=== PATIENT | female | born 1960 | race Caucasian/White ===

== ENCOUNTER → 2016-10-25 | Outpatient (CLI) | payer OTHER ==
--- NOTE | 2016-10-26 13:20 | MM ---
Reason for exam: screening (asymptomatic). Last mammogram was performed 1 year and 11 months ago. History: Patient is postmenopausal and has history of other cancer at age 21. Physical Findings: A clinical breast exam by your physician is recommended on an annual basis and results should be correlated with mammographic findings. MG Screening Mammo w CAD Bilateral CC and MLO view(s) were taken. Prior study comparison: November 19, 2014, bilateral MG screening mammo w CAD. April 08, 2008, bilateral digital screening mammogram. There are scattered fibroglandular densities. No significant changes when compared with prior studies. ASSESSMENT: Benign, BI-RAD 2 RECOMMENDATION: Routine screening mammogram of both breasts in 1 year.
== END | disposition home or self-care (01) ==
LOC: RADMAMWWP 10:09
PROVIDERS: ATTEND Internal Medicine
DX: Z12.31 Encounter for screening mammogram for malignant neoplasm of breast (principal)

== ENCOUNTER → 2018-02-20 | Outpatient (CLI) | payer OTHER ==
[2018-02-20 08:58] LABS: Basophils # (A) 0.1 k/uL (0-0.2); Basophils % (A) 1 %; Eosinophils # (A) 0.7 k/uL (0-0.7); Eosinophils % (A) 11 %; HCT 42.1 % (34.0-46.0); HGB 14.2 gm/dL (11.4-16.0); Lymphocytes # (A) 2.5 k/uL (1.0-4.8); Lymphocytes % (A) 38 %; MCH 28.8 pg (25.0-35.0); MCHC 33.8 g/dL (31.0-37.0); Mean Platelet Volume 6.6; Monocytes # (A) 0.3 k/uL (0-1.0); Monocytes % (A) 5 %; Neutrophils % (A) 44 %; Platelet Count 204 k/uL (150-450); RBC 4.95 m/uL (3.80-5.40); RDW 13.6 % (11.5-15.5); WBC 6.8 k/uL (3.8-10.6)
[2018-02-20 09:06] LABS: ALT 57 U/L (9-52); AST 36 U/L (14-36); Albumin 4.2 g/dL (3.5-5.0); Alkaline Phosphatase 100 U/L (38-126); Anion Gap 9 mmol/L; Blood Urea Nitrogen 19 mg/dL (7-17); Calcium 9.5 mg/dL (8.4-10.2); Carbon Dioxide 25 mmol/L (22-30); Chloride 106 mmol/L (98-107); Cholesterol 166 mg/dL (<200); Glucose 105 mg/dL (74-99); HDL Cholesterol 67 mg/dL (40-60); LDL Cholesterol,Calculated 88 mg/dL (0-99); Potassium 4.3 mmol/L (3.5-5.1); Sodium 140 mmol/L (137-145); Total Bilirubin 1.6 mg/dL (0.2-1.3); Total Protein 6.9 g/dL (6.3-8.2); Triglycerides 56 mg/dL (<150)
== END | disposition home or self-care (01) ==
LOC: LABWHC1 08:13
PROVIDERS: ATTEND Internal Medicine
DX: I10 Essential (primary) hypertension (principal)
CPT/HCPCS: 36415; 80053; 80061; 84443; 85025

== ENCOUNTER → 2018-03-09 | Outpatient (CLI) | payer OTHER ==
--- NOTE | 2018-03-19 11:01 | MM ---
Reason for exam: screening (asymptomatic). Last mammogram was performed 1 year and 4 months ago. History: Patient is postmenopausal and has history of other cancer at age 21. Physical Findings: A clinical breast exam by your physician is recommended on an annual basis and results should be correlated with mammographic findings. MG Screening Mammo w CAD Bilateral CC and MLO view(s) were taken. Prior study comparison: October 25, 2016, bilateral MG screening mammo w CAD. November 19, 2014, bilateral MG screening mammo w CAD. The breast tissue is heterogeneously dense. This may lower the sensitivity of mammography. Benign appearing bilateral calcifications. No suspicious abnormality. No significant changes when compared with prior studies. ASSESSMENT: Benign, BI-RAD 2 RECOMMENDATION: Routine screening mammogram of both breasts in 1 year.
== END | disposition home or self-care (01) ==
LOC: RADMAMWWP 09:46
PROVIDERS: ATTEND Internal Medicine
DX: Z12.31 Encounter for screening mammogram for malignant neoplasm of breast (principal)
CPT/HCPCS: 77067

== ENCOUNTER → 2019-04-24 | Outpatient (CLI) | payer OTHER ==
--- NOTE | 2019-04-24 16:56 | XR ---
EXAMINATION TYPE: XR shoulder complete RT DATE OF EXAM: 04/24/2019 CLINICAL HISTORY: Pain for months. TECHNIQUE: Three views of the right shoulder are obtained. COMPARISON: None. FINDINGS: There is no acute fracture/dislocation evident in the right shoulder. Moderate narrowing a t the acromioclavicular joint. Distal acromion morphology is maintained. Glenohumeral joint is preser suyapa. The visualized ribs are intact and unremarkable. IMPRESSION: As above.
== END | disposition home or self-care (01) ==
LOC: RADXRMAIN 16:34
PROVIDERS: ATTEND Internal Medicine
DX: M25.811 Other specified joint disorders, right shoulder (principal); M25.511 Pain in right shoulder

== ENCOUNTER 2020-04-29 07:47 | Emergency (ER) | payer OTHER ==
[2020-04-29] MEDS ORDERED: MORPHINE SULFATE 4 MG/ML SYRINGE IV STA (08:04)
--- NOTE | 2020-04-29 08:10 | ED ---
General Adult HPI <LancerosettaScooter morris [place] - Last Filed: 04/29/20 10:43> - General Source: patient, RN notes reviewed, old records reviewed Mode of arrival: ambulatory Limitations: no limitations <Ever Kolb - Last Filed: 04/29/20 13:24> - General Chief complaint: Fall Stated complaint: FALL ARM INJURY Time Seen by Provider: 04/29/20 07:52 - History of Present Illness Initial comments: 59-year-old female patient no pertinent past medical history presents to ED for mechanical fall on left elbow. Patient reports that she is leaving to go to work and she was in a [place]leman and she tripped on a piece of wire falling on her left elbow. Denies hitting her head and her neck. Complaining of elbow pain. Denies any blood thinner. Denies any other complaints. Systemic: Pt denies fatigue, fever/chills, rash. Pt denies weakness, night sweats, weight loss. Neuro: Pt denies headache, visual disturbances, syncope or pre-syncope. HEENT: Pt denies ocular discharge or irritation, otalgia, rhinorrhea, pharyngitis or notable lymphadenopathy. Cardiopulmonary: Pt denies chest pain, SOB, heart palpitations, dyspnea on exertion. Abdominal/GI: Pt denies abdominal pain, n/v/d. : Pt denies dysuria, burning w/ urination, frequency/urgency. Denies new onset urinary or bowel incontinence. Neuro: Pt denies new onset weakness, paresthesias. (Ever Kolb) - Related Data Home Medications Medication Instructions Recorded Confirmed Metoprolol Tartrate 25 mg PO DAILY 09/27/15 04/29/20 Ibuprofen [Motrin] 400 mg PO BID 07/04/17 04/29/20 diphenhydrAMINE HCL [Benadryl] 50 mg PO HS PRN 07/04/17 04/29/20 Allergies Allergy/AdvReac Type Severity Reaction Status Date / Time Penicillins AdvReac Rash/Hives Verified 04/29/20 09:06 Review of Systems ROS Other: All systems not noted in ROS Statement are negative. <Scooter Gomez - Last Filed: 04/29/20 10:43> ROS Other: All systems not noted in ROS Statement are negative. <Ever Kolb - Last Filed: 04/29/20 13:24> ROS Statement: Those systems with pertinent positive or pertinent negative responses have been documented in the HPI. Past Medical History Past Medical History: Hypertension History of Any Multi-Drug Resistant Organisms: None Reported Past Surgical History: Cholecystectomy, Hysterectomy Past Psychological History: No Psychological Hx Reported Smoking Status: Former smoker Past Alcohol Use History: None Reported Past Drug Use History: None Reported <Ever Kolb - Last Filed: 04/29/20 13:24> General Exam Limitations: no limitations <Ever Kolb - Last Filed: 04/29/20 13:24> - General Exam Comments Initial Comments: Constitutional: NAD, AOX3, Pt has pleasant affect. HEENT: NC/AT, trachea midline, neck supple, no lymphadenopathy. External ears appear normal, without discharge. Mucous membranes moist. Eyes PERRLA, EOM intact. There is no scleral icterus. No pallor noted. Cardiopulmonary: RRR, no murmurs, rubs or gallops, no JVD noted. Lungs CTAB in anterior and posterior burks. No peripheral edema. Abdominal exam: Abdomen soft and non-distended. Abdomen non-tender to palpation in all 4 quadrants. Bowel sounds active in LLQ. No hepatosplenomegaly. No ecchymosis Neuro: CN II-XII grossly intact. No nuchal rigidity. No raccon eyes, no bobby sign, no hemotympanum. No cervical spinal tenderness. MSK:left elbow is mildly tender to palpation there is some deformity noted. There is no laceration. Radial pulses +2 equal bilaterally. There was some paresthesias and decreased sensation noted to the ulnar aspect of the forearm. Sensation is intact otherwise and range of motion of hand is intact. Posterior tibialis and radial pulse +2 bilaterally. (Ever Kolb) Course Vital Signs 04/29/20 04/29/20 04/29/20 07:55 09:50 09:55 Temperature 97.7 F Pulse Rate 66 81 92 Respiratory 16 18 17 Rate Blood Pressure 147/86 164/92 191/118 O2 Sat by Pulse 99 100 100 Oximetry 04/29/20 04/29/20 04/29/20 10:00 10:15 10:30 Temperature Pulse Rate 108 H 85 69 Respiratory 15 18 17 Rate Blood Pressure 176/98 141/85 134/89 O2 Sat by Pulse 100 99 98 Oximetry 04/29/20 04/29/20 04/29/20 10:45 11:17 11:54 Temperature Pulse Rate 70 71 85 Respiratory 18 18 16 Rate Blood Pressure 131/78 126/83 127/77 O2 Sat by Pulse 98 95 98 Oximetry 04/29/20 12:35 Temperature 98.7 F Pulse Rate 85 Respiratory 18 Rate Blood Pressure 150/90 O2 Sat by Pulse 97 Oximetry Procedures - Procedural Sedation Procedural Sedation Start Time: 09:50 Procedural Sedation Stop Time: 10:30 Indications: fracture/dislocation reduction ASA Class: II Mallampati Airway Score: 2 Preparation: campus monitor applied, pulse oximeter, capnometry used, supplemental O2 applied, suction/airway equipment at bedside Ketamine: IV Ketamine Dose: 74 Complications: none Patient Tolerated Procedure: well <Scooter Gomez - Last Filed: 04/29/20 10:43> - Orthopedic Joint Reduction Joint #1 Consent Obtained: verbal consent Side: left Joint Reduction Location: elbow Shoulder Technique Used (if applicable): traction/counter-traction Post-Reduction Neuro Exam: intact (ulnar decreased sensation noted ) Post-Reduction Vascular Exam: intact Splint Applied: Yes (posterior mold ) Patient Tolerated Procedure: well <Ever Kolb - Last Filed: 04/29/20 13:24> Medical Decision Making <Ever Kolb - Last Filed: 04/29/20 13:24> - Medical Decision Making 59-year-old female patient procedure evaluation of left elbow injury. Patient vital signs are stable, afebrile. Physical exam displayed some tenderness and deformity to the left elbow. Plain film confirmed a elbow dislocation. Patient elbow was reduced under moderate sedation. Initial attempts without moderate sedation was unsuccessful. Patient placed in a posterior mold and a sling will be discharged outpatient orthopedic follow-up and return precautions. patient is alert and oriented upon discharge. Case discussed and procedure completed with Dr. Gomez. (Ever Kolb) Disposition <Scooter Gomez - Last Filed: 04/29/20 10:43> Is patient prescribed a controlled substance at d/c from ED?: No <Ever Kolb - Last Filed: 04/29/20 13:24> Clinical Impression: Elbow dislocation Disposition: HOME SELF-CARE Condition: Stable Instructions (If sedation given, give patient instructions): Elbow Dislocation (ED), Moderate Sedation (ED) Additional Instructions: follow-up with primary care provider and orthopedic consult today. Continue to wear splint and sling. Return to ER if any worsening symptoms. Referrals: Ninoska Crawley MD [Primary Care Provider] - 1-2 days Randall Brush MD [STAFF PHYSICIAN] - 1-2 days
--- NOTE | 2020-04-29 08:39 | XR ---
EXAMINATION TYPE: XR elbow limited LT DATE OF EXAM: 04/29/2020 CLINICAL HISTORY: Fall with pain. TECHNIQUE: 2 views of the left elbow were attempted. COMPARISON: None FINDINGS: There is dislocation as olecranon is displaced radially from the normal position relative to the distal humerus. No linear lucencies to suggest acute fracture clearly seen. Moderate focal sub cutaneous edema proximal forearm ulnar aspect noted. IMPRESSION: As above.
[2020-04-29] MEDS ORDERED: KETOROLAC 15 MG/ML 1 ML VIAL IM STA (08:54)
[2020-04-29] MEDS ORDERED: MORPHINE SULFATE 4 MG/ML SYRINGE IM STA (08:54)
[2020-04-29] MEDS ORDERED: MORPHINE SULFATE 4 MG/ML SYRINGE IVP STA (08:57)
[2020-04-29] MEDS ORDERED: KETOROLAC 15 MG/ML 1 ML VIAL IVP STA (09:06)
[2020-04-29] MEDS ORDERED: KETAMINE 10 MG/ML 20 ML VIAL IV ONE (09:25)
[2020-04-29] MEDS ORDERED: ONDANSETRON 4 MG/2 ML VIAL IVP STA (10:13)
--- NOTE | 2020-04-29 10:17 | XR ---
EXAMINATION TYPE: XR elbow limited LT DATE OF EXAM: 04/29/2020 CLINICAL HISTORY: Elbow dislocation TECHNIQUE: Single lateral image of left elbow is obtained after reduction. COMPARISON: Left elbow x-ray earlier today FINDINGS: There is successful interval reduction with improved articulation of the olecranon with th e distal humerus on the lateral view of prior dislocation. Overlying splint material is present. IMPRESSION: As above.
[2020-04-29] MEDS ORDERED: METOCLOPRAMIDE 5 MG/ML 2 ML VIAL IVP STA (11:54)
[2020-04-29 11:55] VITALS: PULSE 85
[2020-04-29 12:44] VITALS: BP 150/90; RESP 18; TEMP 98.7
== END 2020-04-29 12:44 | disposition home or self-care (01) ==
LOC: EC 07:47
DX: S53.105A Unspecified dislocation of left ulnohumeral joint, initial encounter (principal); I10 Essential (primary) hypertension; Z79.899 Other long term (current) drug therapy; Z88.0 Allergy status to penicillin; Z87.891 Personal history of nicotine dependence; W01.0XXA Fall on same level from slipping, tripping and stumbling without subsequent striking against object, initial encounter
CPT/HCPCS: 99284; 24600; 99152; 99153 ×2; 73070; 96374; 96375 ×3; 96376; J2270; J2765; J2405; J1885

== ENCOUNTER 2020-07-23 18:10 | Emergency (ER) | payer OTHER ==
[2020-07-23 18:17] VITALS: BP 149/94; PULSE 68; RESP 18; TEMP 97.8
--- NOTE | 2020-07-23 18:32 | ED ---
Lower Extremity Injury HPI - General Chief Complaint: Extremity Injury, Lower Stated Complaint: RT knee pain Time Seen by Provider: 07/23/20 18:18 Source: patient Mode of arrival: ambulatory Limitations: no limitations - History of Present Illness Initial Comments: 60-year-old female presenting to the emergency department with a chief complaint of right knee pain. Patient states this occurred about 3 hours prior to arrival. Patient reports she tripped over an object in her house and went directly to the ground with a right knee. Patient reports tenderness directly over the patella and slightly over the infrapatellar region. Patient does report pain with knee flexion past 90. Patient does report taking some ibuprofen for the pain. She reports the pain is exacerbated with flexion and alleviated at rest. Denies any numbness or tingling. - Related Data Home Medications Medication Instructions Recorded Confirmed Metoprolol Tartrate 25 mg PO DAILY 09/27/15 07/23/20 Ibuprofen [Motrin] 600 mg PO HS 07/04/17 07/23/20 diphenhydrAMINE HCL [Benadryl] 50 mg PO HS 07/04/17 07/23/20 Loratadine [Claritin] 20 mg PO DAILY 07/23/20 07/23/20 guaiFENesin [Mucinex] 600 mg PO TID 07/23/20 07/23/20 Allergies Allergy/AdvReac Type Severity Reaction Status Date / Time Penicillins AdvReac Rash/Hives Verified 07/23/20 19:10 Review of Systems ROS Statement: Those systems with pertinent positive or pertinent negative responses have been documented in the HPI. ROS Other: All systems not noted in ROS Statement are negative. Past Medical History Past Medical History: Hypertension History of Any Multi-Drug Resistant Organisms: None Reported Past Surgical History: Cholecystectomy, Hysterectomy Past Psychological History: No Psychological Hx Reported Smoking Status: Former smoker Past Alcohol Use History: None Reported Past Drug Use History: None Reported General Exam Limitations: no limitations General appearance: alert, in no apparent distress Head exam: Present: atraumatic, normocephalic, normal inspection Eye exam: Present: normal appearance, PERRL, EOMI Pupils: Present: normal accommodation ENT exam: Present: normal exam, normal oropharynx, mucous membranes moist, TM's normal bilaterally, normal external ear exam Neck exam: Present: normal inspection, full ROM. Absent: tenderness Respiratory exam: Present: normal lung sounds bilaterally. Absent: respiratory distress, wheezes, rales, rhonchi, stridor Cardiovascular Exam: Present: regular rate, normal rhythm, normal heart sounds. Absent: systolic murmur, diastolic murmur Extremities exam: Present: normal inspection, tenderness (Tenderness directly over the right patellar and infrapatellar region.), normal capillary refill, other (+2 dorsalis pedis and posterior tibials bilaterally.). Absent: full ROM (Limited range of motion with knee flexion past 90.), pedal edema, joint swelling, calf tenderness Back exam: Present: normal inspection, full ROM. Absent: tenderness, CVA tenderness (R), CVA tenderness (L), muscle spasm Neurological exam: Present: alert, oriented X3 Psychiatric exam: Present: normal affect, normal mood Skin exam: Present: warm, dry, intact, normal color Course Vital Signs 07/23/20 18:14 Temperature 97.8 F Pulse Rate 68 Respiratory 18 Rate Blood Pressure 149/94 O2 Sat by Pulse 100 Oximetry Medical Decision Making - Medical Decision Making 60-year-old female presenting to emergency Department with a chief complaint of right knee pain. On physical examination, patient is neurovascularly intact in the right lower stomach. Some localized tenderness to deep patellar patellar region of the right knee. X-ray is unremarkable. Perry wrap was applied. Patient was advised to follow-up with his primary care physician and orthope dics. advised to RICE. Strict return parameters were thoroughly discussed the patient is an attending agreeable. Case discussed with physician. Disposition Clinical Impression: Right knee injury, Right knee pain Disposition: HOME SELF-CARE Condition: Stable Instructions (If sedation given, give patient instructions): Knee Pain (ED) Additional Instructions: Rest, ice, wear compression, elevate. Alternate between Tylenol and Motrin for pain control. return to emergency department if symptoms worsen. Is patient prescribed a controlled substance at d/c from ED?: No Referrals: Ninoska Crawley MD [Primary Care Provider] - 1-2 days Time of Disposition: 19:21
--- NOTE | 2020-07-23 19:11 | XR ---
History: ITS.REASON XR Reason: fall Exam: XR RIGHT KNEE 3 views Comparison: None available FINDINGS: No fracture or dislocation identified. Portions of the suprapatellar soft tissues are excluded from imaging on the lateral view. Possible small joint effusion suggested. The joint spaces appear within limits. IMPRESSION: No fracture or dislocation identified. Portions of the suprapatellar soft tissues are excluded from imaging on the lateral view. Possible small joint effusion suggested.
== END 2020-07-23 19:32 | disposition home or self-care (01) ==
LOC: EC 18:10
DX: S89.91XA Unspecified injury of right lower leg, initial encounter (principal); I10 Essential (primary) hypertension; Z79.1 Long term (current) use of non-steroidal anti-inflammatories (NSAID); Z79.899 Other long term (current) drug therapy; Z88.0 Allergy status to penicillin; Z87.891 Personal history of nicotine dependence; W18.09XA Striking against other object with subsequent fall, initial encounter; Y92.009 Unspecified place in unspecified non-institutional (private) residence as the place of occurrence of the external cause
CPT/HCPCS: 99283

== ENCOUNTER 2020-10-18 08:52 | Inpatient (IN) | payer OTHER ==
[2020-10-18] MEDS ORDERED: SODIUM CHLORIDE 0.9% 500 ML 500 ML IV ONE (09:15)
[2020-10-18] MEDS ORDERED: SODIUM CHLORIDE 0.9% 1,000 ML IV ONE (09:15)
[2020-10-18] MEDS ORDERED: ONDANSETRON 4 MG/2 ML VIAL IVP STA (09:20)
[2020-10-18] MEDS ORDERED: KETOROLAC 15 MG/ML 1 ML VIAL IVP STA (09:20)
--- NOTE | 2020-10-18 09:23 | ED ---
Female Urogenital HPI - General Chief complaint: Urogenital Stated complaint: L side pain Time Seen by Provider: 10/18/20 09:10 Source: patient, RN notes reviewed Mode of arrival: ambulatory Limitations: no limitations - History of Present Illness Initial comments: This is a 60-year-old female with a history of frequent UTIs who states she had the onset yesterday of severe stabbing left-sided flank pain. She states she has dark-colored urine she denies any fevers chills or sweats she states the pain is severe is 20/10 in severity. She has dry heaves with it no blood in urine no other complaints of any other abnormalities at this time. She states she was thought to have a kidney stone one time but was never found by urology. MD Complaint: other - Related Data Home Medications Medication Instructions Recorded Confirmed Metoprolol Tartrate 25 mg PO DAILY 09/27/10/18/20 Ibuprofen [Motrin] 600 mg PO HS 07/04/17 10/18/20 diphenhydrAMINE HCL [Benadryl] 50 mg PO HS 07/04/17 10/18/20 Allergies Allergy/AdvReac Type Severity Reaction Status Date / Time Penicillins AdvReac Rash/Hives Verified 10/18/20 09:28 Review of Systems ROS Statement: Those systems with pertinent positive or pertinent negative responses have been documented in the HPI. ROS Other: All systems not noted in ROS Statement are negative. Past Medical History Past Medical History: Hypertension History of Any Multi-Drug Resistant Organisms: None Reported Past Surgical History: Cholecystectomy, Hysterectomy Past Psychological History: No Psychological Hx Reported Smoking Status: Never smoker Past Alcohol Use History: None Reported Past Drug Use History: None Reported General Exam - General Exam Comments Initial Comments: This is a well-developed well-nourished awake alert oriented 3 female Limitations: no limitations General appearance: alert, anxious, in distress Head exam: Present: atraumatic, normocephalic, normal inspection Eye exam: Present: normal appearance, PERRL, EOMI. Absent: scleral icterus, conjunctival injection, periorbital swelling ENT exam: Present: normal exam, mucous membranes moist Neck exam: Present: normal inspection. Absent: tenderness, meningismus, lymphadenopathy Respiratory exam: Present: normal lung sounds bilaterally. Absent: respiratory distress, wheezes, rales, rhonchi, stridor Cardiovascular Exam: Present: regular rate, normal rhythm, normal heart sounds. Absent: systolic murmur, diastolic murmur, rubs, gallop, clicks GI/Abdominal exam: Present: soft, tenderness (Some tenderness and left flank), normal bowel sounds. Absent: distended, guarding, rebound, rigid Rectal exam: Present: deferred Extremities exam: Present: normal inspection, full ROM, normal capillary refill. Absent: tenderness, pedal edema, joint swelling, calf tenderness Back exam: Present: normal inspection, CVA tenderness (L) Neurological exam: Present: alert, oriented X3, CN II-XII intact Psychiatric exam: Present: normal affect, normal mood Skin exam: Present: warm, dry, intact, normal color. Absent: rash Course Vital Signs 10/18/20 09:00 Temperature 97.6 F Pulse Rate 68 Respiratory 18 Rate Blood Pressure 185/94 O2 Sat by Pulse 99 Oximetry - Reevaluation(s) Reevaluation #1: 10/18/20 10:08 Reevaluation finds patient does states she's feeling improvement in her pain Medical Decision Making - Medical Decision Making Reevaluation patient reveals the pain is beginning to come back she is very uncomfortable nausea has resolved however. I did discuss patient's case with her as well as with Dr. See patient be admitted with GI surgical and consultation. Case is discussed with Dr. Singh - Lab Data Result diagrams: 10/18/20 09:24 10/18/20 09:24 Lab Results 10/18/20 10/18/20 10/18/20 Range/Units 09:24 09:24 09:24 WBC 7.6 (3.8-10.6) k/uL RBC 5.00 (3.80-5.40) m/uL Hgb 14.4 (11.4-16.0) gm/dL Hct 42.5 (34.0-46.0) % MCV 85.0 (80.0-100.0) fL MCH 28.7 (25.0-35.0) pg MCHC 33.8 (31.0-37.0) g/dL RDW 13.7 (11.5-15.5) % Plt Count 217 (150-450) k/uL MPV 6.5 Neutrophils % 60 % Lymphocytes % 28 % Monocytes % 4 % Eosinophils % 6 % Basophils % 1 % Neutrophils # 4.6 (1.3-7.7) k/uL Lymphocytes # 2.2 (1.0-4.8) k/uL Monocytes # 0.3 (0-1.0) k/uL Eosinophils # 0.5 (0-0.7) k/uL Basophils # 0.0 (0-0.2) k/uL Sodium 140 (137-145) mmol/L Potassium 3.9 (3.5-5.1) mmol/L Chloride 106 (98-107) mmol/L Carbon Dioxide 25 (22-30) mmol/L Anion Gap 9 mmol/L BUN 11 (7-17) mg/dL Creatinine 0.69 (0.52-1.04) mg/dL Est GFR (CKD-EPI)AfAm >90 (>60 ml/min/1.73 sqM) Est GFR (CKD-EPI)NonAf >90 (>60 ml/min/1.73 sqM) Glucose 133 H (74-99) mg/dL Calcium 9.7 (8.4-10.2) mg/dL Total Bilirubin 1.6 H (0.2-1.3) mg/dL AST 37 H (14-36) U/L ALT 46 H (4-34) U/L Alkaline Phosphatase 103 (38-126) U/L Total Protein 7.3 (6.3-8.2) g/dL Albumin 4.3 (3.5-5.0) g/dL Urine Color Yellow Urine Appearance Slightly Cloudy H (Clear) Urine pH 5.5 (5.0-8.0) Ur Specific [place] 1.016 (1.001-1.035) Urine Protein Negative (Negative) Urine Glucose (UA) Negative (Negative) Urine Blood Moderate H (Negative) Urine Nitrite Negative (Negative) Urine Bilirubin Negative (Negative) Urine Urobilinogen <2.0 (<2.0) mg/dL Ur Leukocyte Esterase Large (Negative) Urine RBC 54 H (0-5) /hpf Urine WBC 15 H (0-5) /hpf Ur Squamous Epith Cells 6 H (0-4) /hpf Urine Bacteria Rare H (None) /hpf Hyaline Casts 1 (0-2) /lpf Urine Mucus Occasional H (None) /hpf - Radiology Data Radiology results: report reviewed (I did review the imaging and report evidence of colitis as well as a 7 mm obstructing stone left ureter. Please see the complete report), image reviewed Disposition Clinical Impression: Intractable abdominal pain, Kidney stone on left side, Obstructive uropathy, Colitis Disposition: ADMITTED IP TO THIS HOSP Condition: Fair Referrals: Ninoska Crawley MD [Primary Care Provider] - 1-2 days
[2020-10-18 09:43] LABS: Basophils % (A) 1 %; Eosinophils # (A) 0.5 k/uL (0-0.7); Eosinophils % (A) 6 %; HCT 42.5 % (34.0-46.0); HGB 14.4 gm/dL (11.4-16.0); Lymphocytes # (A) 2.2 k/uL (1.0-4.8); Lymphocytes % (A) 28 %; MCH 28.7 pg (25.0-35.0); MCHC 33.8 g/dL (31.0-37.0); Mean Platelet Volume 6.5; Monocytes # (A) 0.3 k/uL (0-1.0); Monocytes % (A) 4 %; Neutrophils # (A) 4.6 k/uL (1.3-7.7); Neutrophils % (A) 60 %; Platelet Count 217 k/uL (150-450); RDW 13.7 % (11.5-15.5); WBC 7.6 k/uL (3.8-10.6)
[2020-10-18 09:46] LABS: ALT 46 U/L (4-34); AST 37 U/L (14-36); African American GFR (CKD) >90 (>60 ml/min/1.73 sqM); Albumin 4.3 g/dL (3.5-5.0); Alkaline Phosphatase 103 U/L (38-126); Anion Gap 9 mmol/L; Blood Urea Nitrogen 11 mg/dL (7-17); Calcium 9.7 mg/dL (8.4-10.2); Carbon Dioxide 25 mmol/L (22-30); Chloride 106 mmol/L (98-107); Glucose 133 mg/dL (74-99); Non-African American GFR(CKD) >90 (>60 ml/min/1.73 sqM); Potassium 3.9 mmol/L (3.5-5.1); Sodium 140 mmol/L (137-145); Total Bilirubin 1.6 mg/dL (0.2-1.3); Total Protein 7.3 g/dL (6.3-8.2)
[2020-10-18 09:49] LABS: Color,Urine Yellow
[2020-10-18 09:50] LABS: Appearance,Urine Slightly Cloudy (Clear); Bilirubin,Urine Negative (Negative); Blood,Urine Moderate (Negative); Glucose,Urine (UA) Negative (Negative); Leukocyte Esterase,Urine Large (Negative); Nitrite,Urine Negative (Negative); PH, Urine 5.5 (5.0-8.0); Protein,Urine Negative (Negative); Specific Gravity,Urine 1.016 (1.001-1.035); Urobilinogen,Urine <2.0 mg/dL (<2.0)
--- NOTE | 2020-10-18 09:54 | CT ---
EXAMINATION TYPE: CT abdomen pelvis wo con DATE OF EXAM: 10/18/2020 COMPARISON: None INDICATION: Lt flank pain DLP: 681.5 mGycm, Automated exposure control for dose reduction was used. CONTRAST: 0 mL of Isovue 300. Study performed without Oral Contrast TECHNIQUE: Axial images were obtained from above the diaphragm to the pubic rami in the axial plane a t 5 mm thick sections. Reconstructed images are reviewed on the computer in the coronal plane. FINDINGS: Limited CT sections are obtained the lung bases. The lung bases are clear. CT ABDOMEN: Liver: Moderate fatty infiltrations within the liver. Spleen: Normal Pancreas: Normal Adrenal glands: The adrenal glands are normal. Gallbladder: Surgically absent Kidneys: No masses are evident. There is a moderate left hydronephrosis. Hydroureter is present. This extends to the mid abdomen. There is a 0.7 cm mid ureteral stone present on the left causing obstruc tion. Distal ureter is decompressed. A punctate calcification without obstruction may be present on t he right kidney No cysts are present. Aorta: Vascular calcification is within the aorta. Inferior vena cava: Normal. CT PELVIS: Loops of bowel within the abdomen and pelvis are normal. There are scattered diverticular changes wit hin the sigmoid colon. Mild colon wall thickening from the proximal transverse colon to the sigmoid c olon wall thickening is present. Correlate for colitis. No suspicious adjacent inflammatory changes t o suggest acute diverticulitis is evident. Studies lateral contrast limiting bowel evaluation. Appendix: Normal as visualized. Urinary bladder: Decompressed with limited evaluation. Genitourinary structures: Uterus is absent. Ovaries are not identified. Osseous structures: No suspicious lytic or sclerotic lesions. Degenerative changes of the lumbar spin e IMPRESSIONS: 1. 0.7 cm obstructing mid left ureteral stone with moderate left hydronephrosis and hydroureter. 2. Nonobstructing punctate posterior mid right renal stone. 3. Diffuse wall thickening within the transverse colon and descending colon and sigmoid colon. Correl ate for colitis.
[2020-10-18 09:55] LABS: RBC,Urine 54 /hpf (0-5); Squamous Epithelial Cell,Urine 6 /hpf (0-4); WBC,Urine 15 /hpf (0-5)
[2020-10-18 09:56] LABS: Bacteria,Urine Rare /hpf; Hyaline Casts,Urine 1 /lpf (0-2); Mucus,Urine Occasional /hpf
[2020-10-18] MEDS ORDERED: NALOXONE 0.4 MG/ML 1 ML VIAL IV PRN (11:06)
[2020-10-18] MEDS ORDERED: ONDANSETRON 4 MG/2 ML VIAL IVP PRN (11:06)
[2020-10-18] MEDS: SODIUM CHLORIDE 0.9% 1,000 ML IV SCH ×2 (11:26→16:28)
[2020-10-18] MEDS: LEVOFLOXACIN 250MG-D5W PMX 250 MG in DEXTROSE/WATER 1 50ML.BAG IVPB SCH (13:14)
--- NOTE | 2020-10-18 14:41 | P.GSCN ---
History of Present Illness Consult date: 10/18/20 History of present illness: 60-year-old female presents to the emergency department with complaints of significant abdominal pain. She states that she does have a history of chronic urinary tract infections and is treated as an outpatient for this issue. She states that she has noticed an increase in her infections as of late. She denies any significant changes in bowel function. She denies any blood in her stool. She states she has never had a colonoscopy. CT of the abdomen and pelvis was performed and was concerning for a left sided obstructing kidney stone with hydroureter and hydronephrosis along with inflammatory changes of the colon. She denies any recent fevers, chills, chest pain or shortness of breath. Review of Systems All systems: negative Past Medical History Past Medical History: Hypertension History of Any Multi-Drug Resistant Organisms: None Reported Past Surgical History: Cholecystectomy, Heart Catheterization, Hysterectomy Past Anesthesia/Blood Transfusion Reactions: No Reported Reaction Past Psychological History: No Psychological Hx Reported Smoking Status: Never smoker Past Alcohol Use History: None Reported Past Drug Use History: None Reported - Past Family History Mother Family Medical History: Coronary Artery Disease (CAD) Additional Family Medical History / Comment(s): OPEN HEART SURGERY Father Family Medical History: Cancer Additional Family Medical History / Comment(s): LUNG Medications and Allergies Home Medications Medication Instructions Recorded Confirmed Type Metoprolol Tartrate 25 mg PO DAILY 09/27/15 10/18/20 History Ibuprofen [Motrin] 600 mg PO HS 07/04/17 10/18/20 History diphenhydrAMINE HCL [Benadryl] 50 mg PO HS 07/04/17 10/18/20 History Allergies Allergy/AdvReac Type Severity Reaction Status Date / Time Penicillins AdvReac Rash/Hives Verified 10/18/20 09:28 Surgical - Exam Osteopathic Statement: *. No significant issues noted on an osteopathic st ructural exam other than those noted in the History and Physical/Consult. Vital Signs Temp Pulse Resp BP Pulse Ox 97.6 F 68 18 185/94 99 10/18/20 09:00 10/18/20 09:00 10/18/20 09:00 10/18/20 09:00 10/18/20 09:00 - General well nourished, no distress - Eyes PERRL - Neck trachea midline - Respiratory normal respiratory effort - Abdomen Soft, some tenderness to palpation on the left side of the abdomen, nond istended, no rebound, no guarding Results - Labs 10/18/20 09:24 10/18/20 09:24 Abnormal Lab Results - Last 24 Hours (Table) 10/18/20 10/18/20 Range/Units 09:24 09:24 Glucose 133 H (74-99) mg/dL Total Bilirubin 1.6 H (0.2-1.3) mg/dL AST 37 H (14-36) U/L ALT 46 H (4-34) U/L Urine Appearance Slightly Cloudy H (Clear) Urine Blood Moderate H (Negative) Urine RBC 54 H (0-5) /hpf Urine WBC 15 H (0-5) /hpf Ur Squamous Epith Cells 6 H (0-4) /hpf Urine Bacteria Rare H (None) /hpf Urine Mucus Occasional H (None) /hpf Diabetes panel 10/18/20 Range/Units 09:24 Sodium 140 (137-145) mmol/L Potassium 3.9 (3.5-5.1) mmol/L Chloride 106 (98-107) mmol/L Carbon Dioxide 25 (22-30) mmol/L BUN 11 (7-17) mg/dL Creatinine 0.69 (0.52-1.04) mg/dL Glucose 133 H (74-99) mg/dL Calcium 9.7 (8.4-10.2) mg/dL AST 37 H (14-36) U/L ALT 46 H (4-34) U/L Alkaline Phosphatase 103 (38-126) U/L Total Protein 7.3 (6.3-8.2) g/dL Albumin 4.3 (3.5-5.0) g/dL Calcium panel 10/18/20 Range/Units 09:24 Calcium 9.7 (8.4-10.2) mg/dL Albumin 4.3 (3.5-5.0) g/dL Pituitary panel 10/18/20 Range/Units 09:24 Sodium 140 (137-145) mmol/L Potassium 3.9 (3.5-5.1) mmol/L Chloride 106 (98-107) mmol/L Carbon Dioxide 25 (22-30) mmol/L BUN 11 (7-17) mg/dL Creatinine 0.69 (0.52-1.04) mg/dL Glucose 133 H (74-99) mg/dL Calcium 9.7 (8.4-10.2) mg/dL Adrenal panel 10/18/20 Range/Units 09:24 Sodium 140 (137-145) mmol/L Potassium 3.9 (3.5-5.1) mmol/L Chloride 106 (98-107) mmol/L Carbon Dioxide 25 (22-30) mmol/L BUN 11 (7-17) mg/dL Creatinine 0.69 (0.52-1.04) mg/dL Glucose 133 H (74-99) mg/dL Calcium 9.7 (8.4-10.2) mg/dL Total Bilirubin 1.6 H (0.2-1.3) mg/dL AST 37 H (14-36) U/L ALT 46 H (4-34) U/L Alkaline Phosphatase 103 (38-126) U/L Total Protein 7.3 (6.3-8.2) g/dL Albumin 4.3 (3.5-5.0) g/dL - Imaging CT scan - abdomen: report reviewed, image reviewed CT scan - pelvis: report reviewed, image reviewed Assessment and Plan Plan: 60-year-old female with complaints of abdominal pain and finding of obstructing ureteral stone and concern for colitis with thickening of the colon. At this point, patient is not having any bloody bowel movements or diarrhea. There is no leukocytosis or fever evidence. Based on CT findings, we can continue IV antibiotics. Due to thickening of the colon, I did recommend the patient have a colonoscopy. This would likely be performed as an outpatient. Gastroenterology is consulted and I will defer to them for endoscopy decision making. Currently, there is no plan for acute surgical intervention. Okay to advance diet as tolerated from a surgical standpoint. Awaiting urologic zahra luation and GI evaluation.
[2020-10-18] MEDS: KETOROLAC 15 MG/ML 1 ML VIAL IVP PRN (16:14)
[2020-10-18] MEDS: metroNIDAZOLE-NS PMX 500 MG in SALINE 1 100ML.BAG IVPB SCH ×2 (16:15→22:56)
--- NOTE | 2020-10-18 17:22 | P.HPIM ---
History of Present Illness H&P Date: 10/18/20 Chief Complaint: Left-sided abdominal pain 60-year-old female with a history of frequent UTIs who states she had the onset yesterday of severe stabbing left-sided flank pain. She states she has dark- colored urine she denies any fevers chills or sweats she states the pain is severe is 20/10 in severity. She has dry heaves with it no blood in urine no other complaints of any other abnormalities at this time. She states she was thought to have a kidney stone one time but was never found by urology. Workup in ED including a CT of the abdomen revealed left-sided obstructing kidney stone with hydroureter and hydronephrosis; CT also showed evidence of colitis Patient is admitted to the hospital for further evaluation by urology and surgery Review of Systems REVIEW OF SYSTEMS: CONSTITUTIONAL: No fever, no malaise, no fatigue. HEENT: No recent visual problems or hearing problems. Denied any sore throat. CARDIOVASCULAR: No chest pain, orthopnea, PND, no palpitations, no syncope. PULMONARY: No shortness of breath, no cough, no hemoptysis. GASTROINTESTINAL: abdominal pain. NEUROLOGICAL: No headaches, no weakness, no numbness. HEMATOLOGICAL: Denies any bleeding or petechiae. GENITOURINARY: Denies any burning micturition, frequency, or urgency. MUSCULOSKELETAL/RHEUMATOLOGICAL: Denies any joint pain, swelling, or any muscle pain. ENDOCRINE: Denies any polyuria or polydipsia. The rest of the 14-point review of systems is negative. Past Medical History Past Medical History: Hypertension History of Any Multi-Drug Resistant Organisms: None Reported Past Surgical History: Cholecystectomy, Hysterectomy Past Psychological History: No Psychological Hx Reported Smoking Status: Never smoker Past Alcohol Use History: None Reported Past Drug Use History: None Reported - Past Family History Mother Family Medical History: Coronary Artery Disease (CAD) Additional Family Medical History / Comment(s): OPEN HEART SURGERY Father Family Medical History: Cancer Additional Family Medical History / Comment(s): LUNG Medications and Allergies Home Medications Medication Instructions Recorded Confirmed Type Metoprolol Tartrate 25 mg PO DAILY 09/27/15 10/18/20 History Ibuprofen [Motrin] 600 mg PO HS 07/04/17 10/18/20 History diphenhydrAMINE HCL [Benadryl] 50 mg PO HS 07/04/17 10/18/20 History Allergies Allergy/AdvReac Type Severity Reaction Status Date / Time Penicillins AdvReac Rash/Hives Verified 10/18/20 09:28 Physical Exam Vitals: Vital Signs Temp Pulse Resp BP Pulse Ox 10/18/20 09:00 97.6 F 68 18 185/94 99 Intake and Output 10/17/20 10/18/20 10/18/20 22:59 06:59 14:59 Other: Weight 73.482 kg PHYSICAL EXAMINATION: GENERAL: The patient is alert and oriented x3, not in any acute distress. Well developed, well nourished. HEENT: Pupils are round and equally reacting to light. EOMI. No scleral icterus. No conjunctival pallor. Normocephalic, atraumatic. No pharyngeal erythema. No thyromegaly. CARDIOVASCULAR: S1 and S2 present. No murmurs, rubs, or gallops. PULMONARY: Chest is clear to auscultation, no wheezing or crackles. ABDOMEN: Soft, some tenderness to palpation on the left side of the abdomen, nondistended, no rebound, no guarding. MUSCULOSKELETAL: No joint swelling or deformity. EXTREMITIES: No cyanosis, clubbing, or pedal edema. NEUROLOGICAL: Gross neurological examination did not reveal any focal deficits. SKIN: No rashes. Results CBC & Chem 7: 10/18/20 09:24 10/18/20 09:24 Labs: Abnormal Lab Results - Last 24 Hours (Table) 10/18/20 10/18/20 Range/Units 09:24 09:24 Glucose 133 H (74-99) mg/dL Total Bilirubin 1.6 H (0.2-1.3) mg/dL AST 37 H (14-36) U/L ALT 46 H (4-34) U/L Urine Appearance Slightly Cloudy H (Clear) Urine Blood Moderate H (Negative) Urine RBC 54 H (0-5) /hpf Urine WBC 15 H (0-5) /hpf Ur Squamous Epith Cells 6 H (0-4) /hpf Urine Bacteria Rare H (None) /hpf Urine Mucus Occasional H (None) /hpf Assessment and Plan Assessment: 1. Obstructing ureteral stone with hydronephrosis - Start patient on IV fluid hydration; pain control; consult urology for further evaluation 2. Colitis; patient denies any bloody bowel movements or diarrhea; white blood count remains normal; general surgery and GI is consulted; surgery evaluated patient and recommended to start patient on a diet and advance as tolerated; GI to see patient and make further recommendations for possible colonoscopy 3. UTI; we will start patient on IV Rocephin with further recommendations once urine culture is available 4. Elevated liver enzymes; AST/ALT is elevated at 37/4.6 with mild elevation in total bilirubin at 1.6; we will order hepatic ultrasound and hepatitis profile; GI to see patient and make further recommendations DVT prophylaxis; SCDs CODE STATUS; full code
--- NOTE | 2020-10-18 19:32 | CONS ---
CONSULTATION DATE OF SERVICE: 10/18/2020 REQUESTING PHYSICIAN: Dr. Ninosak Crawley. REASON FOR CONSULTATION: Abnormal CT scan showing thickening of the colon. HISTORY OF PRESENT ILLNESS: The patient is a 60-year-old pleasant white female who came to the emergency room complaining of severe left flank pain that started two days ago. The pain was mostly in the left lower quadrant area associated with some nausea and vomiting. In the emergency room she had a CT of the abdomen and pelvis done that showed a small left ureteral stone measuring 0.7 cm with moderate left hydronephrosis and hydroureter. Neurology has been consulted. The CT scan also showed diffuse wall thickening of the transverse colon and descending colon and, hence, GI has been consulted. The patient, however, denies any change in bowel habits. She was having some constipation for the last two days, but no diarrhea. No rectal bleeding. Never had a colonoscopy in the past. PAST MEDICAL HISTORY: Significant for hypertension, bladder prolapse, recurrent urinary tract infection. MEDICATIONS AT HOME,: Benadryl, metoprolol, Motrin. ALLERGIES: PENICILLIN. SOCIAL HISTORY: No smoking, no alcohol use. FAMILY HISTORY: Unremarkable. REVIEW OF SYSTEMS: CARDIOPULMONARY: No chest pain or shortness of breath. GENITOURINARY: No dysuria or hematuria. MUSCULOSKELETAL: Unremarkable. SKIN: Unremarkable. ENDOCRINE: Unremarkable. PSYCHIATRIC: Unremarkable. NEUROLOGY: Unremarkable. ENT/VISION: Unremarkable. CONSTITUTIONAL: No recent weight loss. No fever, chills, night sweats. GI: As mentioned above. PAST SURGICAL HISTORY: Cholecystectomy and hysterectomy. FAMILY HISTORY: Unremarkable. PHYSICAL EXAMINATION: She appears comfortable. No apparent distress. Vital signs are stable. Blood pressure is 151/88, pulse is 65, temperature 98.7. HEENT examination unremarkable. Conjunctivae pink. Sclerae anicteric. Oral cavity, no lesions. NECK: No JVD or lymph node enlargement. CHEST: Clear to auscultation. HEART: Regular rate and rhythm. ABDOMEN: Soft. Bowel sounds are positive. No organomegaly. EXTREMITIES: No pedal edema. NEUROLOGIC: Alert and oriented x3. No focal deficits. LABS: WBC 7.6, hemoglobin 14, platelets normal. Basic metabolic panel is within normal limits. T bilirubin is 1.6, AST 37, ALT 46. IMPRESSION: 1. Left flank pain. CT scan showing left ureteral stone with some hydronephrosis. Urology has been consulted. 2. Abnormal CT scan showing thickening of the transverse and descending colon consistent with acute colitis. However, the patient does not have any abdominal symptoms. No diarrhea or rectal bleeding. Most likely nonspecific in etiology. The patient has no prior history of colonoscopy and no history of inflammatory bowel disease. 3. Mild elevation of serum transaminases and bilirubin. No history of chronic liver disease in the past. RECOMMENDATIONS: 1. Await Urology consultation. 2. In regards to the abnormal findings on the CT scan that showed thickening of the colon, she does not need to have any further investigations done. I did recommend for her to have a screening colonoscopy done on outpatient basis once the current problem subsides. 3. We will advance diet as tolerated. 4. Monitor labs closely. We will follow with you. Thank you for this consultation. MMRIGOBERTOL / IJN: [id number] /
[2020-10-18] MEDS: diphenhydrAMINE 25 MG CAP PO PRN (22:54)
[2020-10-18 23:14] LABS: Hepatitis A Antibody IgM Non-Reactive (Non-Reactive); Hepatitis B Core IgM Non-Reactive (Non-Reactive); Hepatitis B Surface Antigen Non-Reactive (Non-Reactive); Hepatitis C IgG Antibody Non-Reactive (Non-Reactive)
[2020-10-19 06:28] LABS: Basophils % (A) 1 %; Eosinophils # (A) 0.3 k/uL (0-0.7); Eosinophils % (A) 5 %; HCT 35.9 % (34.0-46.0); HGB 12.2 gm/dL (11.4-16.0); Lymphocytes # (A) 1.7 k/uL (1.0-4.8); Lymphocytes % (A) 30 %; MCH 29.1 pg (25.0-35.0); MCHC 33.9 g/dL (31.0-37.0); Mean Platelet Volume 6.8; Monocytes # (A) 0.3 k/uL (0-1.0); Monocytes % (A) 5 %; Neutrophils # (A) 3.3 k/uL (1.3-7.7); Neutrophils % (A) 58 %; Platelet Count 164 k/uL (150-450); RBC 4.18 m/uL (3.80-5.40); RDW 13.6 % (11.5-15.5); WBC 5.7 k/uL (3.8-10.6)
[2020-10-19] MEDS: SODIUM CHLORIDE 0.9% 1,000 ML IV SCH ×3 (06:37→21:32)
[2020-10-19 06:44] LABS: African American GFR (CKD) >90 (>60 ml/min/1.73 sqM); Anion Gap 6 mmol/L; Blood Urea Nitrogen 12 mg/dL (7-17); Calcium 8.7 mg/dL (8.4-10.2); Carbon Dioxide 23 mmol/L (22-30); Chloride 110 mmol/L (98-107); Glucose 104 mg/dL (74-99); Non-African American GFR(CKD) >90 (>60 ml/min/1.73 sqM); Sodium 139 mmol/L (137-145)
--- NOTE | 2020-10-19 08:38 | US ---
EXAMINATION TYPE: US abdomen complete DATE OF EXAM: 10/19/2020 COMPARISON: CT CLINICAL HISTORY: Elevated liver enzyme. Renal calcifications; left hydronephrosis; gallbladder remov ed; recurrent UTI EXAM MEASUREMENTS: Liver Length: 13.8 cm Gallbladder Wall: surgically removed CBD: 0.3 cm Spleen: 9.2 cm Right Kidney: 12.1 x 6.5 x 4.8 cm Left Kidney: 12.3 x 7.5 x 5.6 cm Pancreas: hyperechoic, tail obscured by overlying bowel Liver: hyperechoic to right renal cortex and attenuated posteriorly suggests fatty liver Gallbladder: surgically removed Evidence for sonographic Ramos's sign: no CBD: wnl Spleen: wnl Right Kidney: parallel hyperechoic parallel lines noted mid pole suggests vessel wall calcifications Left Kidney: prominent renal cortex is imaged; mid medial cortical cyst = 1.4 x 1.8 x 1.1cm; lower pole cortical cyst seen = 0.7 x 0.9 x 0.7cm; mid pole calcification noted and may be vessel wall calc ification; pyelocaliectasis is noted medially Upper IVC: wnl Abd Aorta: size is wnl; mid and distal wall thickening is noted IMPRESSION: 1. Mild left hydronephrosis.
[2020-10-19] MEDS: metroNIDAZOLE-NS PMX 500 MG in SALINE 1 100ML.BAG IVPB SCH ×3 (08:45→23:39)
[2020-10-19] MEDS: LEVOFLOXACIN 250MG-D5W PMX 250 MG in DEXTROSE/WATER 1 50ML.BAG IVPB SCH (12:39)
--- NOTE | 2020-10-19 13:11 | P.GSCN ---
History of Present Illness Consult date: 10/19/20 Reason for Consult: Left ureteral stone History of present illness: 60-year-old female That got admitted to the hospital with LLQ abdominal pain and left flank pain. Her pain was assosicated with nausea but she denies any vomiting. She denies any fever/chills, any dysuria or gross hematuria. On presentation she had CT of the abdomen and pelvis was performed which showed 7 mm left sided mid ureteral stone with hydronephrosis along with inflammatory changes of the colon. General surgery and GI has been consulted for her colon inflammation. Denies any hx of previous stones. She is still complaining of left flank and LLQ abdominal pain but has improved since admission Review of Systems - Constitutional Denies fever, Denies weight loss - EENT Ears, nose, mouth and throat: Denies dysphagia - Cardiovascular Denies chest pain, Denies shortness of breath - Respiratory Denies cough, Denies 7 - Gastrointestinal Reports abdominal pain, Reports nausea - Genitourinary Genitourinary: Reports flank pain, Reports kidney stones, Denies hematuria, Denies urgency - Neurological Denies headaches, Denies syncope Past Medical History Past Medical History: Hypertension History of Any Multi-Drug Resistant Organisms: None Reported Past Surgical History: Cholecystectomy, Hysterectomy Past Anesthesia/Blood Transfusion Reactions: No Reported Reaction Past Psychological History: No Psychological Hx Reported Smoking Status: Never smoker Past Alcohol Use History: None Reported Past Drug Use History: None Reported - Past Family History Mother Family Medical History: Coronary Artery Disease (CAD) Additional Family Medical History / Comment(s): OPEN HEART SURGERY Father Family Medical History: Cancer Additional Family Medical History / Comment(s): LUNG Medications and Allergies Home Medications Medication Instructions Recorded Confirmed Type Metoprolol Tartrate 25 mg PO DAILY 09/27/15 10/18/20 History Ibuprofen [Motrin] 600 mg PO HS 07/04/17 10/18/20 History diphenhydrAMINE HCL [Benadryl] 50 mg PO HS 07/04/17 10/18/20 History Allergies Allergy/AdvReac Type Severity Reaction Status Date / Time Penicillins AdvReac Rash/Hives Verified 10/18/20 09:28 Surgical - Exam Vital Signs Temp Pulse Resp BP Pulse Ox 97.6 F 68 18 185/94 99 10/18/20 09:00 10/18/20 09:00 10/18/20 09:00 10/18/20 09:00 10/18/20 09:00 - General well developed, well nourished, no distress, moderate pain - Eyes PERRL, normal ocular movement - ENT normal nares, normal mucosa - Respiratory normal expansion, normal respiratory effort - Abdomen Abdomen: soft, tender (left flank, LLQ) - Psychiatric oriented to time, oriented to person, oriented to place Results - Labs 10/19/20 06:03 10/19/20 06:03 Abnormal Lab Results - Last 24 Hours (Table) 10/19/20 Range/Units 06:03 Chloride 110 H (98-107) mmol/L Glucose 104 H (74-99) mg/dL Microbiology - Last 24 Hours (Table) 10/18/20 09:24 Urine Culture - Preliminary Urine,Voided Diabetes panel 10/19/20 Range/Units 06:03 Sodium 139 (137-145) mmol/L Potassium 4.0 (3.5-5.1) mmol/L Chloride 110 H (98-107) mmol/L Carbon Dioxide 23 (22-30) mmol/L BUN 12 (7-17) mg/dL Creatinine 0.58 (0.52-1.04) mg/dL Glucose 104 H (74-99) mg/dL Calcium 8.7 (8.4-10.2) mg/dL Calcium panel 10/19/20 Range/Units 06:03 Calcium 8.7 (8.4-10.2) mg/dL Pituitary panel 10/19/20 Range/Units 06:03 Sodium 139 (137-145) mmol/L Potassium 4.0 (3.5-5.1) mmol/L Chloride 110 H (98-107) mmol/L Carbon Dioxide 23 (22-30) mmol/L BUN 12 (7-17) mg/dL Creatinine 0.58 (0.52-1.04) mg/dL Glucose 104 H (74-99) mg/dL Calcium 8.7 (8.4-10.2) mg/dL Adrenal panel 10/19/20 Range/Units 06:03 Sodium 139 (137-145) mmol/L Potassium 4.0 (3.5-5.1) mmol/L Chloride 110 H (98-107) mmol/L Carbon Dioxide 23 (22-30) mmol/L BUN 12 (7-17) mg/dL Creatinine 0.58 (0.52-1.04) mg/dL Glucose 104 H (74-99) mg/dL Calcium 8.7 (8.4-10.2) mg/dL Assessment and Plan Assessment: 60-year-old female That got admitted to the hospital with LLQ abdominal pain and left flank pain. CT of the abdomen and pelvis was performed which showed 7 mm left sided mid ureteral stone with hydronephrosis along with inflammatory changes of the colon. General surgery and GI has been consulted for her colon inflammation. Her VSS, Urine culture is pending Plan: -F/U on urine culture continue antibiotics, patient has been on abx since admission -Keep NPO past MN, will take patient to the OR tomorrow for cystoscopy left ureteroscopy with holmium laser and stent placement
[2020-10-19] MEDS: KETOROLAC 15 MG/ML 1 ML VIAL IVP PRN (14:39)
[2020-10-19] MEDS: METOPROLOL TARTRATE 25 MG TAB PO SCH (16:02)
--- NOTE | 2020-10-19 16:25 | P.PN ---
Subjective Progress Note Date: 10/19/20 Principal diagnosis: Flank pain She was seen and examined sitting up at the bedside. She denies any abdominal pain, states she still has some mild flank pain. She denies any nausea or vomiting. She has not had a bowel movement in 2 days. The patient is scheduled for left ureteroscopy and stent placement tomorrow with urology. Objective - Vital Signs Vital signs: Vital Signs Temp 97.8 F 10/19/20 14:30 Pulse 79 10/19/20 14:30 Resp 18 10/19/20 14:30 BP 136/75 10/19/20 14:30 Pulse Ox 99 10/19/20 14:30 Intake & Output 10/18/20 10/19/20 10/19/20 18:59 06:59 18:59 Intake Total 400 Output Total 310 350 Balance -310 50 Weight 77.9 kg Intake: Oral 400 Output: Urine 310 350 Other: Voiding Method Toilet Toilet Toilet # Voids 5 - Exam General appearance: The patient is alert, oriented, appears in no acute distress. HET: Head is normocephalic and atraumatic. Conjunctiva pink. Sclera anicteric. Neck: Supple without lymphadenopathy. Abdomen: Soft, nontender, nondistended with bowel sounds. No guarding or rigidity. Extremities: Normal skin color and turgor. No pedal edema Skin: No rashes, no jaundice Neurological: No focal deficits. Alert and oriented 3. - Labs CBC & Chem 7: 10/19/20 06:03 10/19/20 06:03 Labs: Abnormal Lab Results - Last 24 Hours (Table) 10/19/20 Range/Units 06:03 Chloride 110 H (98-107) mmol/L Glucose 104 H (74-99) mg/dL Microbiology - Last 24 Hours (Table) 10/18/20 09:24 Urine Culture - Preliminary Urine,Voided Assessment and Plan (1) Abnormal abdominal CT scan Narrative/Plan: This is 60-year-old female who presented to the hospital with left flank pain. She had a CAT scan of the abdomen done while in the emergency room. The computed tomography scan of the abdomen showed thickening of the transverse and descending colon consistent with acute colitis. However the patient does not have any abdominal symptoms. No diarrhea or rectal bleeding. Most likely nonspecific in etiology. Patient has no prior history of colonoscopy no history of inflammatory bowel disease. The patient will have follow-up with gastroenterology in the office in a few weeks with a schedule outpatient colonoscopy that time. Current Visit: Yes Status: Acute Code(s): R93.5 - ABN FINDINGS ON DX IMAGING OF ABD REGIONS, INC RETROPERITON SNOMED Code(s): 19436890179462376 (2) Kidney stone on left side Narrative/Plan: Patient scheduled for left ureteroscopy and stent placement tomorrow Current Visit: Yes Status: Acute Code(s): N20.0 - CALCULUS OF KIDNEY SNOMED Code(s): 92230333 (3) Elevated LFTs Narrative/Plan: There is mild elevation of serum transaminases and bilirubin. No history of chronic liver disease in the past. Most likely dealing with fatty liver. Will follow-up in the office. Liver enzymes are trending down. Current Visit: Yes Status: Acute Code(s): R79.89 - OTHER SPECIFIED ABNORMAL FINDINGS OF BLOOD CHEMISTRY SNOMED Code(s): 830230403 Plan: 1. Supportive care 2. Diet as tolerated 3. Repeat LFTs are trending down, discussed with patient importance of weight loss and follow-up with gastroenterology 4. In regards to abnormal findings on computed tomography scan showing thickening of the colon, there is no further investigation needed at this time. We recommend patient have a screening colonoscopy done on outpatient basis in a few weeks. Thank you for this consultation, we will sign off at this time. Dr. Valenzuela I agree with the dictator's note, documented as a scribe by Lakisha Ortega.
[2020-10-19] MEDS: LACTATED RINGERS 1,000 ML IV SCH (19:35)
[2020-10-19] MEDS: diphenhydrAMINE 25 MG CAP PO PRN (21:31)
--- NOTE | 2020-10-20 00:05 | P.PN ---
Subjective Progress Note Date: 10/19/20 Principal diagnosis: Left sided hydronephrosis with 7 mm ureteral stone 60-year-old female with a history of frequent UTIs who states she had the onset yesterday of severe stabbing left-sided flank pain. She states she has dark- colored urine she denies any fevers chills or sweats she states the pain is severe is 20/10 in severity. She has dry heaves with it no blood in urine no other complaints of any other abnormalities at this time. She states she was thought to have a kidney stone one time but was never found by urology. Workup in ED including a CT of the abdomen revealed left-sided obstructing kidney stone with hydroureter and hydronephrosis; CT also showed evidence of colitis Patient is admitted to the hospital for further evaluation by urology and surgery 10/19/2020 Patient is lying in the bed awake alert and oriented x3. Left lower quadrant abdominal pain is improved with medications. Abdominal ultrasound showed mild left hydronephrosis. CT of the abdomen pelvis showed 7 mm left-sided mid to ureteral stone with hydronephrosis along with inflammatory changes of the colon. Patient was seen by urology and is planning for cystoscopy, left ureteroscopy and stent placement tomorrow. Patient is being continued on antibiotics in the form of Levaquin and Flagyl due to bowel wall thickening consistent with transverse line descending colon acute colitis. GI and urology is on board. Current medications reviewed. Objective - Vital Signs Vital signs: Vital Signs Temp 98 F 10/19/20 20:00 Pulse 68 10/19/20 20:00 Resp 16 10/19/20 20:00 BP 146/87 10/19/20 20:00 Pulse Ox 100 10/19/20 20:00 Intake & Output 10/19/20 10/19/20 10/20/20 06:59 18:59 06:59 Intake Total 400 Output Total 350 Balance 50 Intake: Oral 400 Output: Urine 350 Other: Voiding Method Toilet Toilet Toilet # Voids 5 1 - Exam PHYSICAL EXAMINATION: Patient is lying in the bed comfortably, no acute distress, awake alert and oriented.. HEENT: Normocephalic. Neck is supple. Pupils reactive. Nostrils clear. Oral cavity is moist. Ears reveal no drainage. Neck reveals no JVD, carotid bruits, or thyromegaly. CHEST EXAMINATION: Trachea is central. Symmetrical expansion. Lung burks clear to auscultation and percussion. CARDIAC: Normal S1, S2 with no gallops. No murmurs ABDOMEN: Soft. Bowel sounds normal. No organomegaly. No abdominal bruits. Extremities: reveal no edema. No clubbing or cyanosis Neurologically awake, alert, oriented x3 with well-coordinated movements. No focal deficits noted Skin: No rash or skin lesions. Psychiatric: Coperative. Nonsuicidal Musculoskeletal: No joint swelling or deformity. Normal range of motion. - Labs CBC & Chem 7: 10/19/20 06:03 10/19/20 06:03 Labs: Abnormal Lab Results - Last 24 Hours (Table) 10/19/20 Range/Units 06:03 Chloride 110 H (98-107) mmol/L Glucose 104 H (74-99) mg/dL Microbiology - Last 24 Hours (Table) 10/18/20 09:24 Urine Culture - Final Urine,Voided Assessment and Plan Assessment: 1. Obstructing 7mm ureteral stone with hydronephrosis - on IV fluid hydration; pain control; Continue with antibiotics. Urology is planning for cystoscopy and ureteroscopy tomorrow. 2. Colitis; patient denies any bloody bowel movements or diarrhea; white blood count remains normal; general surgery and GI is consulted; surgery evaluated patient and recommended to start patient on a diet and advance as tolerated; GI recommends outpatient follow-up for screening colonoscopy in a few weeks. 3. UTI; Continue with antibiotics with further recommendations once urine culture is available 4. Elevated liver enzymes; AST/ALT is elevated at 37/4.6 with mild elevation in total bilirubin at 1.6; Follow-up repeat LFTs and GI as following. DVT prophylaxis; SCDs CODE STATUS; full code Time with Patient: Greater than 30
[2020-10-20 06:13] LABS: Basophils # (A) 0.1 k/uL (0-0.2); Basophils % (A) 1 %; Eosinophils # (A) 0.5 k/uL (0-0.7); Eosinophils % (A) 8 %; HCT 35.3 % (34.0-46.0); HGB 12.3 gm/dL (11.4-16.0); Lymphocytes # (A) 1.7 k/uL (1.0-4.8); Lymphocytes % (A) 28 %; MCH 30.3 pg (25.0-35.0); MCV 86.6 fL (80.0-100.0); Mean Platelet Volume 6.8; Monocytes # (A) 0.4 k/uL (0-1.0); Monocytes % (A) 6 %; Neutrophils # (A) 3.3 k/uL (1.3-7.7); Neutrophils % (A) 56 %; Platelet Count 163 k/uL (150-450); RBC 4.07 m/uL (3.80-5.40); RDW 13.2 % (11.5-15.5); WBC 5.9 k/uL (3.8-10.6)
[2020-10-20 06:22] LABS: ALT 34 U/L (4-34); AST 31 U/L (14-36); African American GFR (CKD) >90 (>60 ml/min/1.73 sqM); Alkaline Phosphatase 73 U/L (38-126); Anion Gap 3 mmol/L; Blood Urea Nitrogen 13 mg/dL (7-17); Calcium 8.7 mg/dL (8.4-10.2); Carbon Dioxide 26 mmol/L (22-30); Chloride 111 mmol/L (98-107); Glucose 106 mg/dL (74-99); Non-African American GFR(CKD) >90 (>60 ml/min/1.73 sqM); Potassium 4.1 mmol/L (3.5-5.1); Sodium 140 mmol/L (137-145); Total Bilirubin 1.2 mg/dL (0.2-1.3); Total Protein 5.5 g/dL (6.3-8.2)
[2020-10-20] MEDS ORDERED: fentaNYL (PF) 50 MCG/ML 2 ML AMP IV PRN (07:00)
[2020-10-20] MEDS ORDERED: HYDROmorphone 0.5 MG/0.5 ML SYRINGE IVP PRN (07:00)
[2020-10-20] MEDS: metroNIDAZOLE-NS PMX 500 MG in SALINE 1 100ML.BAG IVPB SCH ×3 (08:37→23:01)
[2020-10-20] MEDS: METOPROLOL TARTRATE 25 MG TAB PO SCH (08:38)
[2020-10-20] MEDS: SODIUM CHLORIDE 0.9% 1,000 ML IV SCH ×3 (10:48→20:39)
[2020-10-20] MEDS: LEVOFLOXACIN 250MG-D5W PMX 250 MG in DEXTROSE/WATER 1 50ML.BAG IVPB SCH (11:43)
[2020-10-20] MEDS: KETOROLAC 15 MG/ML 1 ML VIAL IVP PRN ×2 (11:45→23:00)
[2020-10-20 14:01] LABS: Hepatitis A Antibody IgM Non-Reactive (Non-Reactive); Hepatitis B Core IgM Non-Reactive (Non-Reactive); Hepatitis B Surface Antigen Non-Reactive (Non-Reactive); Hepatitis C IgG Antibody Non-Reactive (Non-Reactive)
[2020-10-20] MEDS ORDERED: IV FLUID CONTINUATION 900 ML IV ONE (18:19)
[2020-10-20] MEDS ORDERED: ONDANSETRON 4 MG/2 ML VIAL IVP ONE (18:27)
[2020-10-20] MEDS ORDERED: DEXAMETHASONE SOD PHOSPHATE 4 MG/ML 1 ML VIAL IV ONE (18:27)
--- NOTE | 2020-10-20 18:44 | P.PN ---
Subjective Progress Note Date: 10/20/20 No acute overnight events, patient still having flank pain today. Denies any N/V Objective - Vital Signs Vital signs: Vital Signs Temp 98.6 F 10/20/20 14:08 Pulse 72 10/20/20 18:19 Resp 18 10/20/20 18:19 BP 141/83 10/20/20 18:19 Pulse Ox 98 10/20/20 18:19 Intake & Output 10/19/20 10/20/20 10/20/20 18:59 06:59 18:59 Intake Total 400 Output Total 350 1400 Balance 50 -1400 Intake: Oral 400 Output: Urine 350 1400 Other: Voiding Method Toilet Toilet Toilet # Voids 1 5 - Constitutional General appearance: Present: no acute distress - EENT ENT: Present: hearing grossly normal - Psychiatric Psychiatric: Present: A&O x's 3 - Labs CBC & Chem 7: 10/20/20 05:40 10/20/20 05:40 Labs: Abnormal Lab Results - Last 24 Hours (Table) 10/20/20 Range/Units 05:40 Chloride 111 H (98-107) mmol/L Glucose 106 H (74-99) mg/dL Total Protein 5.5 L (6.3-8.2) g/dL Albumin 3.0 L (3.5-5.0) g/dL Microbiology - Last 24 Hours (Table) 10/18/20 09:24 Urine Culture - Final Urine,Voided Assessment and Plan Assessment: 60-year-old female That got admitted to the hospital with LLQ abdominal pain and left flank pain. CT of the abdomen and pelvis was performed which showed 7 mm left sided mid ureteral stone with hydronephrosis along with inflammatory changes of the colon. General surgery and GI has been consulted for her colon inflammation. Her VSS, Urine culture is negative, has been on levofloxacin since admission Plan: -OR for cystoscopy left ureteroscopy with holmium laser and stent placement
--- NOTE | 2020-10-20 20:15 | P.OP ---
Date of Procedure: 10/20/20 Preoperative Diagnosis: Left ureteral calculi Postoperative Diagnosis: Same Procedure(s) Performed: Cystoscopy, left ureteroscopy, holmium laser lithotripsy, stone basketing and stent placement Implants: 6-Palestinian by 24 cm stent Anesthesia: [place] Surgeon: Brian Singh Estimated Blood Loss (ml): 5 Pathology: other (Left ureteral stone) Condition: stable Disposition: PACU Indications for Procedure: This is a 60-year-old female with history of a 7 mm stone, she symptomatic secondary to her stone. The option of left-sided ureteroscopy was discussed with her. Discussed the risk which includes but not limited to bleeding, infection, injury to the ureter. She understood all the risk and agreed to proceed Operative Findings: Left proximal ureteral stone, there was a ureteral polyp adjacent to the stone Description of Procedure: Patient was brought to the operating room, general anesthesia was induced. She was prepped and draped in sterile fashion and placed in dorsal lithotomy position. Cystoscopy fitted with a 21-Palestinian sheath was inserted per urethra, cystoscopy was performed which showed no abnormality within the bladder. At this time the cystoscope was withdrawn and a semirigid ureteroscope was inserted. The ureteroscope was advanced up the left ureteral orifice and up into the proximal ureter. At this point a ureteral stone was encountered, just distal to the stone there was a ureteral polyp. Using the holmium laser the ureteral polyp was ablated, the polyp was covered with normal mucosa, there were no concerning lesions for TCC. Attention was then carried to the ureteral stone, using the holmium laser the stone was fragmented into small fragments. Sizable fragments were removed using the stone basket. At this time a sensor wire was advanced through the ureteroscope and the ureteroscope was withdrawn with the wire in place. Next 11-13 ureteral access sheath was passed over the wire under fluoroscopy. Flexible ureteroscope was inserted through the access sheath, renoscopy was performed which showed no residual fragments or any additional stones. Pullback ureteroscopy was performed showed no injury to the ureter or any evidence of ureteral stone. A ureteral stent was passed over the wire, the proximal curl was visualized on fluoroscopy and distal curl was visualized using the cystoscope. The bladder was emptied and into the case. The patient tolerated the procedure well was taken to PACU in stable condition
[2020-10-20] MEDS ORDERED: diphenhydrAMINE 50 MG/ML 1 ML VIAL IVP ONE (20:31)
[2020-10-20] MEDS: LACTATED RINGERS 1,000 ML IV SCH (21:35)
[2020-10-21 01:56] VITALS: RESP 16
--- NOTE | 2020-10-21 07:35 | FL ---
Fluoroscopy History: Cysto. Cysto. LT ureteral stent placement. 17 secs FL
[2020-10-21 08:38] VITALS: BP 137/82; PULSE 79; TEMP 97.7
[2020-10-21] MEDS: KETOROLAC 15 MG/ML 1 ML VIAL IVP PRN (08:42)
[2020-10-21] MEDS: metroNIDAZOLE-NS PMX 500 MG in SALINE 1 100ML.BAG IVPB SCH (08:42)
[2020-10-21] MEDS: SODIUM CHLORIDE 0.9% 1,000 ML IV SCH (08:44)
[2020-10-21] MEDS: METOPROLOL TARTRATE 25 MG TAB PO SCH (08:45)
[2020-10-21] MEDS: LEVOFLOXACIN 250MG-D5W PMX 250 MG in DEXTROSE/WATER 1 50ML.BAG IVPB SCH (12:21)
--- NOTE | 2020-10-21 16:13 | P.PN ---
Subjective Progress Note Date: 10/21/20 No acute overnight events, status post left-sided ureteroscopy Objective - Vital Signs Vital signs: Vital Signs Temp 97.7 F 10/21/20 08:37 Pulse 79 10/21/20 08:37 Resp 16 10/21/20 08:37 BP 137/82 10/21/20 08:37 Pulse Ox 98 10/21/20 08:37 Intake & Output 10/20/20 10/21/20 10/21/20 18:59 06:59 18:59 Intake Total 800 222 Output Total 5 Balance 800 217 Intake: IV 800 0 Oral 222 Output: Estimated Blood Loss 5 Other: Voiding Method Toilet Toilet Toilet # Voids 4 1 2 - Constitutional General appearance: Present: no acute distress - EENT Eyes: Present: EOMI - Psychiatric Psychiatric: Present: A&O x's 3, appropriate affect - Labs CBC & Chem 7: 10/20/20 05:40 10/20/20 05:40 Assessment and Plan Assessment: 60-year-old female That got admitted to the hospital with LLQ abdominal pain and left flank pain. CT of the abdomen and pelvis was performed which showed 7 mm left sided mid ureteral stone with hydronephrosis along with inflammatory changes of the colon. General surgery and GI has been consulted for her colon inflammation. Her VSS, Urine culture is negative, has been on levofloxacin since admission. Postoperative day #1 status post left-sided ureteroscopy with holmium laser Plan: -Okay for discharge from urology standpoint, can follow-up in 1-2 weeks for stent removal
== END 2020-10-21 14:20 | disposition home or self-care (01) | DRG 661 ==
LOC: EC 08:52 → 6PED 11:06
PROVIDERS: ADMIT Internal Medicine; ATTEND Internal Medicine
PROC: 0T578ZZ Destruction of Left Ureter, Via Natural or Artificial Opening Endoscopic (ICD-10-PCS; principal; 2020-10-20 16:30)
PROC: 0T778DZ Dilation of Left Ureter with Intraluminal Device, Via Natural or Artificial Opening Endoscopic (ICD-10-PCS; principal; 2020-10-20 16:30)
PROC: 0TC78ZZ Extirpation of Matter from Left Ureter, Via Natural or Artificial Opening Endoscopic (ICD-10-PCS; principal; 2020-10-20 16:30)
DX: N13.2 Hydronephrosis with renal and ureteral calculous obstruction (principal); K52.9 Noninfective gastroenteritis and colitis, unspecified; K76.0 Fatty (change of) liver, not elsewhere classified; K59.00 Constipation, unspecified; Z79.899 Other long term (current) drug therapy; N28.89 Other specified disorders of kidney and ureter; Z82.49 Family history of ischemic heart disease and other diseases of the circulatory system; Z87.440 Personal history of urinary (tract) infections; Z90.710 Acquired absence of both cervix and uterus; Z90.49 Acquired absence of other specified parts of digestive tract; Z80.1 Family history of malignant neoplasm of trachea, bronchus and lung; Z20.822 Contact with and (suspected) exposure to COVID-19
CPT/HCPCS: 36415; 74176; 76700; 80048; 80053; 80074; 81001; 82365; 85025; 87086; 87635; 96361; 96374; 96375; 99285

== ENCOUNTER 2020-10-27 17:26 | Emergency (ER) | payer OTHER ==
[2020-10-27 18:29] VITALS: BP 155/70; PULSE 74; RESP 18; TEMP 98.5
[2020-10-27] MEDS ORDERED: DIPH,PERTUS(ACELL)TETVAC-LF 0.5 ML VIAL IM ONE (18:30)
--- NOTE | 2020-10-27 18:32 | ED ---
General Adult HPI - General Chief complaint: Wound/Laceration Stated complaint: Finger Lac Time Seen by Provider: 10/27/20 18:15 Source: patient, RN notes reviewed Mode of arrival: ambulatory Limitations: no limitations - History of Present Illness Initial comments: 60-year-old female since to the emergency room for chief, and of laceration. 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 Patient states it is a very shallow, and has stopped bleeding but work made her come in. Patient is not up-to-date on tetanus. Patient denies any difficulty bending her finger. Denies taking blood thinners. Denies any loss of sensation in the finger. Patient has no other complaints at this time including shortness of breath, chest pain, abdominal pain, nausea or vomiting, headache, or visual changes. - Related Data Home Medications Medication Instructions Recorded Confirmed Metoprolol Tartrate 25 mg PO DAILY 09/27/15 10/27/20 Ibuprofen [Motrin] 600 mg PO HS 07/04/17 10/27/20 diphenhydrAMINE HCL [Benadryl] 50 mg PO HS 07/04/17 10/27/20 Allergies Allergy/AdvReac Type Severity Reaction Status Date / Time Penicillins AdvReac Rash/Hives Verified 10/27/20 18:29 Review of Systems ROS Statement: Those systems with pertinent positive or pertinent negative responses have been documented in the HPI. ROS Other: All systems not noted in ROS Statement are negative. Past Medical History Past Medical History: Hypertension History of Any Multi-Drug Resistant Organisms: None Reported Past Surgical History: Cholecystectomy, Hysterectomy Past Anesthesia/Blood Transfusion Reactions: No Reported Reaction Past Psychological History: No Psychological Hx Reported Smoking Status: Never smoker Past Alcohol Use History: None Reported Past Drug Use History: None Reported - Past Family History Mother Family Medical History: Coronary Artery Disease (CAD) Additional Family Medical History / Comment(s): OPEN HEART SURGERY Father Family Medical History: Cancer Additional Family Medical History / Comment(s): LUNG General Exam Limitations: no limitations General appearance: alert, in no apparent distress Head exam: Present: atraumatic, normocephalic, normal inspection Eye exam: Present: normal appearance, PERRL, EOMI. Absent: scleral icterus, conjunctival injection, periorbital swelling ENT exam: Present: normal exam, mucous membranes moist Neck exam: Present: normal inspection. Absent: tenderness, meningismus, lymphadenopathy Respiratory exam: Present: normal lung sounds bilaterally. Absent: respiratory distress, wheezes, rales, rhonchi, stridor Cardiovascular Exam: Present: regular rate, normal rhythm, normal heart sounds. Absent: systolic murmur, diastolic murmur, rubs, gallop, clicks Extremities exam: Present: full ROM (Full flexion and extension of the right second digit.), normal capillary refill (cap refill less than 2 seconds of the right second digit.), other (Less than 1 cm laceration noted to the dorsum of the second finger along the PIP joint. This is superficial. It is not bleeding. No deep structure injury.) Course Vital Signs 10/27/20 18:24 Temperature 98.5 F Pulse Rate 74 Respiratory 18 Rate Blood Pressure 155/70 O2 Sat by Pulse 97 Oximetry Medical Decision Making - Medical Decision Making Patient has a very superficial laceration noted to the right second finger. Full range of motion. No loss of sensation. No obvious deep structure injury. Wound was cleaned. Tetanus updated. Wound does not require stitches and patient is agreeable to this. Band-Aid was placed. She will follow up with primary care. She'll return here for any worsening symptoms. Disposition Clinical Impression: Superficial laceration Disposition: HOME SELF-CARE Condition: Good Instructions (If sedation given, give patient instructions): Laceration (ED) Additional Instructions: Please follow up with primary care in 1-2 days. keep the area clean with gentle soap and water. Monitor for signs of infection such as spreading or streaking redness, drainage, or fever. Return to the emergency room for any worsening symptoms. Is patient prescribed a controlled substance at d/c from ED?: No Referrals: Ninoska Crawley MD [Primary Care Provider] - 1-2 days Time of Disposition: 18:32
== END 2020-10-27 18:42 | disposition home or self-care (01) ==
LOC: EC 17:26
DX: S61.210A Laceration without foreign body of right index finger without damage to nail, initial encounter (principal); I10 Essential (primary) hypertension; Z88.0 Allergy status to penicillin; W26.8XXA Contact with other sharp object(s), not elsewhere classified, initial encounter
CPT/HCPCS: 90471; 90715; 99282

== ENCOUNTER → 2020-12-16 | Outpatient (CLI) | payer OTHER ==
--- NOTE | 2020-12-16 16:57 | US ---
EXAMINATION TYPE: US kidneys/renal and bladder DATE OF EXAM: 12/16/2020 COMPARISON: CT 10/18/2020 ultrasound abdomen 10/19/2020 CLINICAL HISTORY: N20.1 calculus of Ureter. Patient states having a stent placed in left kidney and r ecently removed due to stone. EXAM MEASUREMENTS: Right Kidney: 12.0 x 5.4 x 4.8 cm Left Kidney: 11.7 x 4.9 x 5.5 cm Right Kidney: No hydronephrosis or renal calculi seen Left Kidney: No hydronephrosis or renal calculi. Two cystic lesions seen. 1=Medial, 2.2 x 1.9 x 1.5 c m 2- Mid lower pole = 1.5 x 2.0 x 1.0 cm Bladder: mildly distended Bilateral Jets are not seen No evidence of hydronephrosis or renal calculi. Bilateral ureteral jets are not visualized. IMPRESSION: 1. No hydronephrosis or renal calculi. 2. 2 left renal cysts are seen.
== END | disposition home or self-care (01) ==
LOC: RADUSWWP 15:00
PROVIDERS: ATTEND Urology
DX: N28.1 Cyst of kidney, acquired (principal); N20.1 Calculus of ureter
CPT/HCPCS: 76770

== ENCOUNTER → 2021-03-19 | Outpatient (CLI) | payer OTHER ==
[2021-03-19 09:15] LABS: Basophils # (A) 0.1 k/uL (0-0.2); Basophils % (A) 1 %; Eosinophils # (A) 0.4 k/uL (0-0.7); Eosinophils % (A) 6 %; HCT 43.3 % (34.0-46.0); HGB 14.4 gm/dL (11.4-16.0); Lymphocytes % (A) 33 %; MCH 29.8 pg (25.0-35.0); MCHC 33.2 g/dL (31.0-37.0); MCV 89.8 fL (80.0-100.0); Mean Platelet Volume 7.2; Monocytes # (A) 0.2 k/uL (0-1.0); Monocytes % (A) 4 %; Neutrophils # (A) 3.2 k/uL (1.3-7.7); Neutrophils % (A) 54 %; Platelet Count 199 k/uL (150-450); RBC 4.82 m/uL (3.80-5.40); RDW 13.9 % (11.5-15.5)
[2021-03-19 09:25] LABS: African American GFR (CKD) >90 (>60 ml/min/1.73 sqM); Anion Gap 9 mmol/L; Blood Urea Nitrogen 13 mg/dL (7-17); Calcium 9.6 mg/dL (8.4-10.2); Carbon Dioxide 25 mmol/L (22-30); Chloride 107 mmol/L (98-107); Glucose 129 mg/dL (74-99); Non-African American GFR(CKD) >90 (>60 ml/min/1.73 sqM); Sodium 141 mmol/L (137-145)
[2021-03-19 10:52] LABS: Appearance,Urine Clear (Clear); Bilirubin,Urine Negative (Negative); Blood,Urine Negative (Negative); Color,Urine Yellow; Glucose,Urine (UA) Negative (Negative); Ketones,Urine Negative (Negative); Leukocyte Esterase,Urine Negative (Negative); Nitrite,Urine Negative (Negative); PH, Urine 5.5 (5.0-8.0); Protein,Urine Negative (Negative); Specific Gravity,Urine 1.025 (1.001-1.035); Urobilinogen,Urine <2.0 mg/dL (<2.0)
== END | disposition home or self-care (01) ==
LOC: LABPAT 08:26
PROVIDERS: ATTEND Urology
DX: Z01.812 Encounter for preprocedural laboratory examination (principal); N81.9 Female genital prolapse, unspecified; R35.0 Frequency of micturition
CPT/HCPCS: 36415; 80048; 81003; 85025; 87086

== ENCOUNTER 2021-03-26 09:21 | Observation (INO) | payer OTHER ==
[2021-03-24 09:50] VITALS: BMI 30.2
--- NOTE | 2021-03-25 12:51 | P.HPIHPCON ---
History of Present Illness H&P Date: 03/25/21 This is 60-year-old female history of stage III cystocele, she is symptomatic secondary to her cystocele. Option of surgery, vaginal repair, and a robotic sacralcolpopexy was discussed with her in detail. Discussed with her the risk and benefit of each approach. She agreed to proceed with a robotic sacral colpopexy. Discussed with her we would be using mesh, discussed the risk which includes but not limited to bleeding, infection, mesh erosion through the vagina, bladder, and rectum, potential of recurrence of the cystocele, and persistent symptoms. Discussed also with her risk from anesthesia. She understood all the risk and agreed to proceed with robotic sacral colpopexy Consent for Procedure: I have explained the operation/procedure to the patient, including the risks, benefits, side effects, alternative therapies (including not receiving the proposed treatment or service), the likelihood of the patient achieving his/her goals, and potential recuperation problems for the procedure/sedation/analgesia, as well as any blood products, if indicated. I also explained to the patient the risks, benefits and side effects of the alternatives, as well as the risks related to not receiving the proposed procedure, care, treatment, or services. Past Medical History Past Medical History: Hypertension Additional Past Medical History / Comment(s): Hx kidney stones. Hx dislocated left elbow, still has limited mobility in left arm. History of Any Multi-Drug Resistant Organisms: None Reported Past Surgical History: Cholecystectomy, Hysterectomy Additional Past Surgical History / Comment(s): Kidney stone surgery. Past Anesthesia/Blood Transfusion Reactions: Postoperative Nausea & Vomiting (PONV) Additional Past Anesthesia/Blood Transfusion Reaction / Comment(s): Daughter PONV. Past Psychological History: No Psychological Hx Reported Smoking Status: Never smoker Past Alcohol Use History: None Reported Past Drug Use History: None Reported - Past Family History Mother Family Medical History: Coronary Artery Disease (CAD) Additional Family Medical History / Comment(s): OPEN HEART SURGERY. Father Family Medical History: Cancer Additional Family Medical History / Comment(s): LUNG CANCER. Medications and Allergies Home Medications Medication Instructions Recorded Confirmed Type Metoprolol Tartrate 25 mg PO QAM 09/27/15 03/24/21 History diphenhydrAMINE HCL [Benadryl] 50 mg PO HS 07/04/17 03/24/21 History Acetaminophen Tab [Tylenol] 650 mg PO QAM 03/24/21 03/24/21 History Loratadine [Claritin] 10 mg PO QAM 03/24/21 03/24/21 History Allergies Allergy/AdvReac Type Severity Reaction Status Date / Time Penicillins AdvReac Rash/Hives Verified 03/24/21 09:32 Surgical - Exam - General no distress, no pain - Eyes PERRL, normal ocular movement - ENT normal nares, normal mucosa - Respiratory normal expansion, normal respiratory effort Assessment and Plan Assessment: 60-year-old female history of stage III cystocele OR for robotic sacrocolpopexy
[~2021-03-26 09:21] MED LIST: CLINDAMYCIN 600 MG in DEXTROSE 5% IN WATER 50 ML IVPB PRN; DEXAMETHASONE SOD PHOSPHATE 4 MG/ML 1 ML VIAL IV ONE; GENTAMICIN 120 MG in SODIUM CHLORIDE 0.9% 100 ML IVPB PRN; HEPARIN SODIUM,PORCINE/PF 5,000 UNIT/0.5 ML SYRINGE SQ PRN; LIDOCAINE 1% (10MG/ML) FOR IV START INTRADERMA PRN; ONDANSETRON 4 MG/2 ML VIAL IVP ONE
[2021-03-26] MEDS: LACTATED RINGERS 1,000 ML IV SCH ×2 (09:50→17:07)
[2021-03-26] MEDS ORDERED: LACTATED RINGERS 1,000 ML IV ONE ×2 (09:50→15:52)
[2021-03-26] MEDS ORDERED: MIDAZOLAM 2 MG/2 ML VIAL IVP ONE ×2 (10:18→11:55)
[2021-03-26] MEDS ORDERED: SCOPOLAMINE 1.5MG/72HR PATCH TRANSDERM ONE (10:20)
[2021-03-26] MEDS ORDERED: HYDROmorphone (PF) 1 MG/ML ONE (11:56)
[2021-03-26] MEDS ORDERED: SUCCINYLCHOLINE CHLORIDE 100 MG/5 ML SYR IV ONE (11:56)
[2021-03-26] MEDS ORDERED: GLYCOPYRROLATE 0.2 MG/ML 2 ML VIAL ONE (11:56)
[2021-03-26] MEDS ORDERED: NEOSTIGMINE 1 MG/ML 10 ML VIAL ONE (11:56)
[2021-03-26] MEDS ORDERED: LIDOCAINE 1% INJ 10MG/ML (20 ML MDV) ONE (11:56)
[2021-03-26] MEDS ORDERED: ROCURONIUM 10 MG/ML (5 ML VIAL) IV ONE (11:56)
[2021-03-26] MEDS ORDERED: PROPOFOL 10 MG/ML 20 ML VIAL IV ONE (11:56)
[2021-03-26] MEDS ORDERED: fentaNYL (PF) 50 MCG/ML 2 ML AMP ONE (11:56)
[2021-03-26] MEDS ORDERED: BUPIVACAINE (PF) 0.5% 30 ML VIAL SQ ONE (12:00)
[2021-03-26] MEDS ORDERED: KETOROLAC 15 MG/ML 1 ML VIAL ONE (15:25)
[2021-03-26] MEDS ORDERED: KETOROLAC 15 MG/ML 1 ML VIAL IVP ONE ×2 (15:28→15:31)
[2021-03-26] MEDS ORDERED: HYDROmorphone 0.5 MG/0.5 ML SYRINGE IVP ONE ×2 (15:32→15:45)
--- NOTE | 2021-03-26 15:35 | P.OP ---
Date of Procedure: 03/26/21 Preoperative Diagnosis: pevlic organ prolapse, cystocele Postoperative Diagnosis: Same Procedure(s) Performed: Robotic-assisted laparoscopic sacral colpopexy Implants: Coloplast Y mesh Anesthesia: [place] Surgeon: Brian Singh Estimated Blood Loss (ml): 50 Pathology: none sent Condition: stable Disposition: PACU Indications for Procedure: This is 60-year-old female history of stage III cystocele, she is symptomatic secondary to her cystocele. Option of surgery, vaginal repair, and a robotic sacralcolpopexy was discussed with her in detail. Discussed with her the risk and benefit of each approach. She agreed to proceed with a robotic sacral co lpopexy. Discussed with her we would be using mesh, discussed the risk which includes but not limited to bleeding, infection, mesh erosion through the vagina, bladder, and rectum, potential of recurrence of the cystocele, and persistent symptoms. Discussed also with her risk from anesthesia. She understood all the risk and agreed to proceed with robotic sacral colpopexy Description of Procedure: She was taken to the OR and administered general anesthesia and placed in lithotomy position. Insufflation was obtained using the Veress needle. Next the robotic camera port was placed above the umbilicus, a 8mm robotic port was placed on the right side, an additional 12 mm child care assistant port was placed more laterally. 2 robotic ports were placed on the left. The robot was then docked and the child care assistant sac between the patient's legs with a vaginal sizer. Patient had adhesion along the left lower quadrant, which were lysed sharply . attention was then carried to the prolapse With firm upward traction on the vagina and angle downwards, and with the monopolar scissors and fenestrated bipolar and the bladder was reflected off the vagina. Of note the bladder was densely adherent to the vagina, there was no surgical planed appreciated. Additionally the bladder was completely draped over the vagina and it was noticed that the bladder was extending even along the posterior wall of the vagina, patient also had extensive pelvic fat which made retraction more challenging. During the dissection a small hole was noticed in the dome bladder, this was repaired in 2 layers using 3-0 V-lock, the posterior peritoneum along the bladder was mobilized to cover the opening. There was also small hole in the vagina that was closed using 3-0 Vicryl. The bladder closure was tested and was watertight. As we carried the dissection more laterally, more defined plane could be identified, after identifying the plane this was carried sharply to the midline of the bladder and vagina. Minor bleeding points were controlled with bipolar. Once the anterior dissection was completed the attention was directed to the posterior dissection. The child care assistant pushed the sizer in an upwards and the rectum was completely dissected off the vagina down to the perineal body. Again all minor bleeding points were coagulated. Tension was then directed to the sacral promontory. The sigmoid was reflected to the left with the fourth arm, and an incision was made on the peritoneum over the sacral promontory. The entire sacral promontory was dissected, and the fat was excised to expose adequate amount of periosteum and bone to place 2 layers of sutures. Hemostasis was confirmed. The peritoneum posteriorly was incised from the sacral promontory to the vaginal opening to facilitate placement of the mesh. Attention was now directed to the Y mesh. The Y mesh was trimmed to the necessary size and introduced into the body through the 12 mm port. The Y mesh was placed over the vagina with one limb each on the anterior and posterior vaginal wall. Using 2-0 Ethibond interrupted sutures 3 layers of sutures were placed thereby fixing the mesh to the anterior vaginal wall. Care was taken to advance the mesh all the way distally. Attention was then directed to the posterior vaginal wall and the mesh was fixed to the posterior vaginal wall using 2 layers of 2-0 Ethibond, 2 sutures in each layer. Again the sutures were placed as distally as possible to the perineal body. Attention was taken so as to not enter the vagina with the sutures. We ensured that the mesh was not overlain the bladder repair, Once the 2 limbs of the Y mesh was securely placed, attention was directed to the sacral promontory. The child care assistant was asked to push the sizer firmly superiorly and the single Lembert of the Y mesh was then fixed to the sacral promontory in 2 layers with interrupted sutures. Gortex interrupted sutures were used to fix the mesh to the periosteum of the sacral promontory. Once this was completed the sizer was removed from the vagina and inspection of the vagina with a speculum showed complete resolution of the cystocele Hemostasis was again confirmed. A 2-0 lock was then used to close the peritoneum incision so as to extrapertonialize the mesh completely. All the sutures and mesh pieces were removed. A count was performed which was correct. And the abdomen was desufflated and all ports were removed. All the incisions were closed with 4-0 Monocryl subcuticular sutures and the patient was sent to recovery in stable condition with the Perkins catheter
[2021-03-26] MEDS ORDERED: ONDANSETRON 4 MG/2 ML VIAL IVP ONE ×2 (16:10→16:14)
[2021-03-26] MEDS ORDERED: ONDANSETRON 4 MG/2 ML VIAL ONE (16:11)
[2021-03-26] MEDS: KETOROLAC 15 MG/ML 1 ML VIAL IVP SCH ×3 (17:08→23:22)
[2021-03-26] MEDS: HEPARIN SODIUM,PORCINE/PF 5,000 UNIT/0.5 ML SYRINGE SQ SCH ×2 (17:08→23:23)
[2021-03-26] MEDS: D5-0.45% NACL WITH KCL 20MEQ/L 1,000 ML IV SCH ×2 (17:12→21:30)
[2021-03-26 18:16] VITALS: RESP 18
[2021-03-26] MEDS ORDERED: diphenhydrAMINE 50 MG CAP PO SCH (21:00)
[2021-03-26] MEDS ORDERED: ONDANSETRON 4 MG/2 ML VIAL IVP PRN (21:17)
[2021-03-26] MEDS: HYDROcodone/APAP 5-325MG 1 EACH TAB PO PRN (22:11)
[2021-03-27] MEDS: KETOROLAC 15 MG/ML 1 ML VIAL IVP SCH (05:29)
[2021-03-27 08:09] VITALS: TEMP 98.3
[2021-03-27] MEDS: HEPARIN SODIUM,PORCINE/PF 5,000 UNIT/0.5 ML SYRINGE SQ SCH (08:15)
[2021-03-27] MEDS ORDERED: guaiFENesin 600 MG TABLET.ER PO SCH (09:00)
[2021-03-27] MEDS ORDERED: LORATADINE 10 MG TAB PO SCH (09:00)
[2021-03-27] MEDS ORDERED: METOPROLOL TARTRATE 25 MG TAB PO SCH (09:00)
--- NOTE | 2021-03-27 10:57 | P.DS ---
Providers Date of admission: 03/27/21 08:01 Attending physician: Brian Singh MD Primary care physician: [facility] Course: The patient was admitted yesterday for a brisk optic sacral colpopexy by Dr. Singh. There was a small cystotomy during the takedown of the bladder off the vagina. This was closed uneventfully. Postoperatively she did well. Her pain is under control. She is ambulating. Her urine is clear. She is tolerating a regular diet. Her vital signs are stable. She'll be discharged home. Should the catheter remain in place 2 weeks. She'll follow-up with on 04/09/2021. Postoperative instructions been given. She's been given a small prescription for Mcgrath She'll contact us with any problems. Postoperative instructions in the given. Condition is good. Patient Condition at Discharge: Good Plan - Discharge Summary Discharge Rx Participant: No New Discharge Prescriptions: No Action Metoprolol Tartrate 25 mg PO QAM diphenhydrAMINE HCL [Benadryl] 50 mg PO HS Acetaminophen Tab [Tylenol] 650 mg PO QAM Loratadine [Claritin] 10 mg PO QAM guaiFENesin [Mucinex] 1,200 mg PO DAILY Discharge Medication List Metoprolol Tartrate 25 mg PO QAM 09/27/15 [History] diphenhydrAMINE HCL [Benadryl] 50 mg PO HS 07/04/17 [History] Acetaminophen Tab [Tylenol] 650 mg PO QAM 03/24/21 [History] Loratadine [Claritin] 10 mg PO QAM 03/24/21 [History] guaiFENesin [Mucinex] 1,200 mg PO DAILY 03/26/21 [History] Follow up Appointment(s)/Referral(s): Brian Singh MD [STAFF PHYSICIAN] - 04/09/21 Discharge Disposition: HOME SELF-CARE
[2021-03-27 11:28] VITALS: BP 123/74; PULSE 76
[2021-03-27] MEDS: HYDROcodone/APAP 5-325MG 1 EACH TAB PO PRN (12:14)
== END 2021-03-27 13:05 | disposition home or self-care (01) ==
LOC: OR 09:21 → 6PED 15:28 → OR 03-27 08:01
PROVIDERS: ADMIT Urology; ATTEND Urology
DX: N81.10 Cystocele, unspecified (principal); I10 Essential (primary) hypertension; Z79.899 Other long term (current) drug therapy; Z88.0 Allergy status to penicillin; J30.2 Other seasonal allergic rhinitis; Z90.49 Acquired absence of other specified parts of digestive tract; Z87.442 Personal history of urinary calculi; Z90.710 Acquired absence of both cervix and uterus; Z80.1 Family history of malignant neoplasm of trachea, bronchus and lung; Z82.49 Family history of ischemic heart disease and other diseases of the circulatory system
CPT/HCPCS: 57425; 57250; 86900; 86901; 86850; G0378; C1781; J2250; J1100; J2710; J2405; J2001; J3010; J1580; J1170 ×2; J1885 ×2; J0330; J2704; J1644 ×2

== ENCOUNTER → 2021-04-06 | Outpatient (CLI) | payer OTHER ==
--- NOTE | 2021-04-06 16:06 | FL ---
EXAMINATION TYPE: FL cystogram DATE OF EXAM: 04/06/2021 COMPARISON: CT abdomen and pelvis October 18, 2020 HISTORY: History of bladder injury during bladder prolapse surgical correction requiring surgical int ervention and Perkins catheter TECHNIQUE: Fluoroscopic assisted retrograde cystogram. Fluoroscopic guidance was provided during pro cedure performed by myself. A total of 11 seconds of fluoroscopic time was utilized during the proce dure and 58 spot images was acquired. A total of 150 cc of Cystografin given as instructed by urologi st for procedure. FINDINGS: Preprocedure microsystems engineer image shows no suspicious abnormality. Cholecystectomy clips incidental ly redemonstrated. Occasional scattered pelvic phlebolith again seen. Perkins catheter is in place upon patient arrival. There is successful filling of the bladder without e xtravasation of contrast to suggest persistent bladder leak. After voiding small amount of residual c ontrast in the bladder and along Perkins catheter is noted. Patient tolerated procedure well without any immediate complication. Patient stayed for short time af ter the procedure and then was discharged home in stable condition. IMPRESSION: As Above. No bladder leak identified.
== END | disposition home or self-care (01) ==
LOC: RADFLMAIN 09:04
PROVIDERS: ATTEND Urology
DX: N18.9 Chronic kidney disease, unspecified (principal)
CPT/HCPCS: 74430; Q9958

== ENCOUNTER 2021-07-27 12:58 | Emergency (ER) | payer OTHER ==
[2021-07-27] MEDS ORDERED: DEXAMETHASONE SOD PHOSPHATE 10 MG/ML 1 ML VIAL IVP STA (15:03)
[2021-07-27] MEDS ORDERED: SODIUM CHLORIDE 0.9% 1,000 ML IV ONE (15:03)
[2021-07-27] MEDS ORDERED: ACETAMINOPHEN TAB 500 MG TAB PO STA (15:04)
[2021-07-27] MEDS ORDERED: IBUPROFEN 600 MG TAB PO STA (15:04)
--- NOTE | 2021-07-27 15:09 | ED ---
General Adult HPI - General Chief complaint: Shortness of Breath Stated complaint: Covid+, SOB Time Seen by Provider: 07/27/21 13:10 Source: patient, RN notes reviewed, old records reviewed Mode of arrival: wheelchair Limitations: no limitations - History of Present Illness Initial comments: This is a 60-year-old female presents emergency department stating that she started having symptoms of cold on July 22 the she was tested positive. Patient comes in today to get a monoclonal antibodies. Patient states she's continued to cough and have some shortness of breath. Patient denies any chest pain or palpitations. Patient states she does feel like she has fever. Patient states she does have chills per patient denies abdominal pain patient denies nausea vomiting diarrhea. Patient states she has lost her taste and smell and she is not eating or drinking much. Patient has not taken any Motrin or Tylenol prior to arrival. Patient is unvaccinated. Patient does have high blood pressure - Related Data Home Medications Medication Instructions Recorded Confirmed Metoprolol Tartrate 25 mg PO QAM 09/27/15 03/26/21 diphenhydrAMINE HCL [Benadryl] 50 mg PO HS 07/04/17 03/24/21 Acetaminophen Tab [Tylenol] 650 mg PO QAM 03/24/21 03/24/21 Loratadine [Claritin] 10 mg PO QAM 03/24/21 03/26/21 guaiFENesin [Mucinex] 1,200 mg PO DAILY 03/26/21 03/26/21 Previous Rx's Medication Instructions Recorded Dexamethasone [Decadron] 6 mg PO DAILY #7 tablet 07/27/21 Allergies Allergy/AdvReac Type Severity Reaction Status Date / Time Penicillins AdvReac Rash/Hives Verified 03/24/21 09:32 Review of Systems ROS Statement: Those systems with pertinent positive or pertinent negative responses have been documented in the HPI. ROS Other: All systems not noted in ROS Statement are negative. Past Medical History Past Medical History: Hypertension Additional Past Medical History / Comment(s): Hx kidney stones. Hx dislocated left elbow, still has limited mobility in left arm. History of Any Multi-Drug Resistant Organisms: None Reported Past Surgical History: Cholecystectomy, Hysterectomy Additional Past Surgical History / Comment(s): Kidney stone surgery. sacrocolpolexy. Past Anesthesia/Blood Transfusion Reactions: No Reported Reaction Additional Past Anesthesia/Blood Transfusion Reaction / Comment(s): Daughter PONV. Past Psychological History: No Psychological Hx Reported Smoking Status: Never smoker - Past Family History Mother Family Medical History: Coronary Artery Disease (CAD) Additional Family Medical History / Comment(s): OPEN HEART SURGERY. Father Family Medical History: Cancer Additional Family Medical History / Comment(s): LUNG CANCER. General Exam - General Exam Comments Initial Comments: GENERAL: Patient is well-developed and well-nourished. Patient is nontoxic and well- hydrated and is in mild distress. ENT: Neck is soft and supple. No significant lymphadenopathy is noted. Oropharynx i s clear. Moist mucous membranes. Neck has full range of motion without eliciting any pain. EYES: The sclera were anicteric and conjunctiva were pink and moist. Extraocular movements were intact and pupils were equal round and reactive to light. Eyelids were unremarkable. PULMONARY: Unlabored respirations. Good breath sounds bilaterally. Patient has crackles in the bases. CARDIOVASCULAR: There is a regular rate and rhythm without any murmurs gallops or rubs. ABDOMEN: Soft and nontender with normal bowel sounds. SKIN: Skin is clear with no lesions or rashes and otherwise unremarkable. NEUROLOGIC: Patient is alert and oriented x3. Cranial nerves II through XII are grossly intact. Motor and sensory are also intact. Normal speech, volume and content. Symmetrical smile. MUSCULOSKELETAL: Normal extremities with adequate strength and full range of motion. LYMPHATICS: No significant lymphadenopathy is noted PSYCHIATRIC: Normal psychiatric evaluation. Limitations: no limitations Course Vital Signs 07/27/21 07/27/21 13:10 15:50 Temperature 100.0 F H Pulse Rate 110 H Respiratory 20 20 Rate Blood Pressure 117/82 O2 Sat by Pulse 93 L Oximetry Medical Decision Making - Medical Decision Making Patient's x-ray showed bilateral infiltrates consistent with Coban. Patient received monoclonal antibodies and Decadron in the emergency department. - Lab Data Lab Results 07/27/21 Range/Units 15:43 Coronavirus (PCR) Detected A (Not Detectd) Disposition Clinical Impression: Pneumonia due to COVID-19 virus Disposition: ADMITTED IP TO THIS HOSP Prescriptions: Dexamethasone [Decadron] 6 mg PO DAILY #7 tablet Referrals: Ninoska Crawley MD [Primary Care Provider] - 1-2 days Time of Disposition: 16:32
--- NOTE | 2021-07-27 15:17 | XR ---
EXAMINATION TYPE: XR chest 1V portable DATE OF EXAM: 07/27/2021 Comparison: None Clinical History: 61-year-old female with shortness of breath Findings: Heart upper limits of normal in size. Patchy bilateral interstitial opacities. No pleural effusion. C holecystectomy clips. Impression: Patchy bilateral interstitial infiltrates. Correlate for COVID pneumonia.
[2021-07-27] MEDS ORDERED: BAMLANIVIMAB (EUA) 700 MG, ETESEVIMAB (EUA) 1,400 MG in SODIUM CHLORIDE 0.9% 100 ML IVPB ONE (16:00)
[2021-07-27] MEDS ORDERED: SODIUM CHLORIDE 0.9% 50 ML IVPB ONE (16:00)
[2021-07-27 18:08] VITALS: TEMP 99.1
[2021-07-27 19:12] VITALS: BP 136/84; PULSE 80; RESP 18
== END 2021-07-27 19:10 | disposition home or self-care (01) ==
LOC: EC 12:58
DX: U07.1 COVID-19 (principal); J12.82 Pneumonia due to coronavirus disease 2019; I10 Essential (primary) hypertension; Z88.0 Allergy status to penicillin; Z79.899 Other long term (current) drug therapy
CPT/HCPCS: 87635; 71045; 99285; 96374; J1100; J3490

== ENCOUNTER → 2021-09-29 | Outpatient (CLI) | payer OTHER ==
--- NOTE | 2021-10-01 14:17 | MM ---
Reason for exam: screening (asymptomatic). Last mammogram was performed 3 years and 7 months ago. History: Patient is postmenopausal and has history of other cancer at age 21. Physical Findings: A clinical breast exam by your physician is recommended on an annual basis and results should be correlated with mammographic findings. MG Screening Mammo w CAD Bilateral CC, MLO, and XCCL view(s) were taken. Prior study comparison: March 09, 2018, bilateral MG screening mammo w CAD. October 25, 2016, bilateral MG screening mammo w CAD. There are scattered fibroglandular densities. No significant changes when compared with prior studies. ASSESSMENT: Benign, BI-RAD 2 RECOMMENDATION: Routine screening mammogram of both breasts in 1 year.
== END | disposition home or self-care (01) ==
LOC: RADMAMWWP 16:07
PROVIDERS: ATTEND Internal Medicine
DX: Z12.31 Encounter for screening mammogram for malignant neoplasm of breast (principal)
CPT/HCPCS: 77067

== ENCOUNTER → 2022-01-17 | Outpatient (CLI) | payer OTHER ==
[2022-01-17 10:38] LABS: Basophils # (A) 0.07 X 10*3/uL (0.00-0.10); Basophils % (A) 1.2 %; Eosinophils # (A) 0.84 X 10*3/uL (0.04-0.35); HCT 44.6 % (37.2-46.3); HGB 14.1 g/dL (12.0-15.0); Immature Grans, Automated 0.2 %; Lymphocytes # (A) 2.09 X 10*3/uL (0.90-5.00); Lymphocytes % (A) 37.3 %; MCH 27.7 pg (27.0-32.0); MCHC 31.6 g/dL (32.0-37.0); MCV 87.6 fL (80.0-97.0); Mean Platelet Volume 9.6 fL (9.5-12.2); Monocytes # (A) 0.29 X 10*3/uL (0.20-1.00); Monocytes % (A) 5.2 %; NRBC Per 100 WBC 0 /100 WBCS (0.0-0.0); Neutrophils # (A) 2.31 X 10*3/uL (1.80-7.70); Neutrophils % (A) 41.1 %; Platelet Count 225 X 10*3/uL (140-440); RBC 5.09 X 10*6/uL (4.10-5.20); RDW 13.5 % (11.5-14.5); WBC 5.61 X 10*3/uL (4.50-10.00)
[2022-01-17 10:48] LABS: Ceruloplasmin 25.5 mg/dL (20.0-60.0)
[2022-01-17 10:53] LABS: Protein, Total 6.6 g/dL (6.2-8.2)
[2022-01-17 11:02] LABS: % Iron Saturation 23.11 (12.00-45.00); African American GFR (CKD) 112.4 (60.0-200.0); Albumin/Globulin Ratio 1.54 (1.60-3.17); Anion Gap 9.4 mmol/L (10.00-18.00); BUN/Creat Ratio 23.5 Ratio (12.00-20.00); Blood Urea Nitrogen 14.1 mg/dL (9.0-27.0); Calcium 9.3 mg/dL (8.7-10.3); Carbon Dioxide 22.6 mmol/L (20.0-27.5); Globulin 2.6 g/dL (1.6-3.3); Potassium 4.3 mmol/L (3.5-5.5); Total Bilirubin 0.9 mg/dL (0.30-1.20); Total Protein 6.6 g/dL (6.2-8.2)
[2022-01-18 13:51] LABS: Albumin 3.62 g/dL (3.80-4.90); Gamma Globulin 0.82 g/dL (0.70-1.50)
== END | disposition home or self-care (01) ==
LOC: LABWHC1 07:28
PROVIDERS: ATTEND Nurse Practitioner Family
DX: R74.8 Abnormal levels of other serum enzymes (principal)
CPT/HCPCS: 36415; 80053; 82103; 82390; 82728; 83516; 83540; 83550; 84165; 85025; 86038

== ENCOUNTER → 2022-02-02 | Outpatient (CLI) | payer OTHER ==
--- NOTE | 2022-02-02 10:38 | US ---
EXAMINATION TYPE: US abdomen complete DATE OF EXAM: 02/02/2022 COMPARISON: US 09/2020, CT abdomen pelvis 09/20/2020 CLINICAL HISTORY: R74.8 ABNORMAL LEVELS OF OTHER SERUM ENZYMES. GENERALIZED ABDOMINAL PAIN, ELEVATED LABS EXAM MEASUREMENTS: Liver Length: 14.4 cm Gallbladder Wall: Surgically absent CBD: 0.6 cm Spleen: 10.8 cm Right Kidney: 12.7 x 5.1 x 6.0 cm Left Kidney: 12.9 x 6.2 x 5.9 cm Pancreas: Obscured by bowel gas Liver: NO ABNORMALITIES SEEN, LIMITED VIS increased echotexture to the liver parenchyma. Gallbladder: Surgically absent, FOSSA AREA IMAGED Evidence for sonographic Ramos's sign: NO CBD: UPPER LIMITS Spleen: NO ABNORMALITIES SEEN Right Kidney: HYPOECHOIC AREA NOTED IN MID AREA MEASURING APPROX. 2.7 x 1.3 x 2.9cm which consistent with column of Tato. Left Kidney: HYPOECHOIC AREAS NOTED IN MID CORTEX MEASURING APPROX. 2.1 x 1.4 x 2.2cm AND MID/INF PE LVIS AMALIA. 1.6 x 1.2 x 1.9cm with posterior acoustic enhancement consistent with renal cysts. Upper IVC: wnl Abd Aorta: APPEARS ECTATIC AT PROX AREA AMALIA. 2.6cm TECH DIFFICULT EXAM DUE TO BOWEL GAS IMPRESSION: 1. Hepatic steatosis. 2. Mildly ectatic abdominal aorta.
== END | disposition home or self-care (01) ==
LOC: RADUSWWP 06:57
PROVIDERS: ATTEND Internal Medicine Gastroenterology
DX: R74.8 Abnormal levels of other serum enzymes (principal)
CPT/HCPCS: 76700

== ENCOUNTER → 2022-11-22 | Outpatient (CLI) | payer OTHER ==
--- NOTE | 2022-11-23 07:36 | MM ---
Reason for Exam: Screening (asymptomatic). Last mammogram was performed 1 year(s) and 1 month(s) ago. Patient History: Menarche at age 12. First Full-Term at age 14. Hysterectomy at age 21. Postmenopausal. Other cancer, age 21. Risk Values: Meka 5 year model risk: 1.1%. NCI Lifetime model risk: 4.3%. Prior Study Comparison: 10/25/2016 Bilateral Screening Mammogram, [facility]. 03/09/2018 Bilateral Screening Mammogram, [facility]. 09/29/2021 Bilateral Screening Mammogram, [facility]. Tissue Density: There are scattered fibroglandular densities. Findings: Analyzed By CAD. Benign-appearing vascular calcification bilaterally is redemonstrated. Benign-appearing bilateral axillary lymph nodes are again seen. Occasional small circumscribed round mass redemonstrated bilaterally. There is no suspicious new group of microcalcifications or new suspicious mass in either breast. Overall Assessment: Benign, BI-RAD 2 Management: Screening Mammogram of both breasts in 1 year. A clinical breast exam by your physician is recommended on an annual basis and results should be correlated with mammographic findings. Electronically signed and approved by: Ronaldo Schmidt M.D.
== END | disposition home or self-care (01) ==
LOC: RADMAMWWP 16:29
PROVIDERS: ATTEND Internal Medicine
DX: Z12.31 Encounter for screening mammogram for malignant neoplasm of breast (principal); Z78.0 Asymptomatic menopausal state
CPT/HCPCS: 77067

== ENCOUNTER → 2023-07-18 | Outpatient (CLI) | payer MEDICARE ==
--- NOTE | 2023-07-18 17:34 | BD ---
EXAMINATION TYPE: Axial Bone Density DATE OF EXAM: 07/18/2023 CLINICAL HISTORY: 63 years old Female. ICD-10 CODE: N95.8 MENOPAUSAL Height: 149.8 Weight: 62 FRAX RISK QUESTIONS: Alcohol (3 or more units per day): no Family History (Parent hip fracture): no Glucocorticoids (More than 3mos): no (Ex: prednisone, prednisolone, methylprednisolone, dexamethasone, and hydrocortisone). History of Fracture in Adulthood: yes Secondary Osteoporosis: 1. Type 1 Diabetes: no 2. Hyperthyroidism: no 3. Menopause before 45: yes 4. Malnutrition: no 5. Chronic liver disease: no Rheumatoid Arthritis: no Current Tobacco Use: no RISK FACTORS HISTORY OF: Surgery to Spine/Hip(right/left)/Wrist (right/left): no Additional History: EXAM MEASUREMENTS: Bone mineral densitometry was performed using the [employer] System. Bone mineral density as measured about the Lumbar spine is: ----- L1-L4(G/cm2): 0.967 T Score Values are as follows: ----- L1: -2.0 ----- L2: -2.9 ----- L3: -1.5 ----- L4: -1.0 ----- L1-L4: -1.8 Z Score Values are as follows: ----- L1: -0.5 ----- L2: -1.4 ----- L3: 0.0 ----- L4: 0.5 ----- L1-L4: -0.3 Bone mineral density : baseline Bone mineral density about the R hip (g/cm2): 0.782 Bone mineral density about the L hip (g/cm2): 0.882 T Score values are as follows: -----R Neck: -1.4 -----L Neck: -1.3 -----R Total: -1.8 -----L Total: -1.0 Z Score values are as follows: -----R Neck: 0.0 -----L Neck: 0.1 -----R Total: -0.7 -----L Total: 0.1 Bone mineral density : baseline FRAX%s: The graph provided illustrates a 14.2% chance for a major osteoporotic fx and a 1.4% chance f or the hips probability for fx in 10 years time. IMPRESSION: Osteopenia (T Score between -2.5 and -1). There is slightly increased risk of fracture and the patient may be considered for treatment. Re-Screen 2-5 years. NOTE: T-SCORE=SD OF THE YOUNG ADULT MEAN.
== END | disposition home or self-care (01) ==
LOC: RADBDWWP 09:18
PROVIDERS: ATTEND Internal Medicine
DX: M85.89 Other specified disorders of bone density and structure, multiple sites (principal); M81.0 Age-related osteoporosis without current pathological fracture; Z78.0 Asymptomatic menopausal state
CPT/HCPCS: 77080

== ENCOUNTER → 2024-08-13 | Outpatient (CLI) | payer MEDICARE ==
--- NOTE | 2024-08-13 08:55 | MM ---
Reason for Exam: Screening (asymptomatic). Last mammogram was performed 1 year(s) and 9 month(s) ago. Patient History: Menarche at age 12. First Full-Term at age 14. Hysterectomy at age 21. Postmenopausal. Other cancer, age 21. Risk Values: Meka 5 year model risk: 1.1%. NCI Lifetime model risk: 4.0%. Prior Study Comparison: 03/09/2018 Bilateral Screening Mammogram, [facility]. 09/29/2021 Bilateral Screening Mammogram, [facility]. 11/22/2022 Bilateral MG screening mammo w CAD, [facility]. Tissue Density: There are scattered areas of fibroglandular density. Findings: Analyzed By CAD. There are benign-appearing vascular calcifications bilaterally redemonstrated. There are benign-appearing small round and linear calculations bilaterally redemonstrated. Benign-appearing bilateral axillary lymph nodes are redemonstrated. There is no suspicious new group of microcalcifications or new suspicious mass in either breast. Overall Assessment: Benign, BI-RAD 2 Management: Screening Mammogram of both breasts in 1 year. . Patient should continue monthly self-breast exams. A clinical breast exam by your physician is recommended on an annual basis. This exam should not preclude additional follow-up of suspicious palpable abnormalities. Note on Meka scores and lifetime risk: 1. A Meka score greater than 3% is considered moderate risk. If this is the case, consider specialist referral to assess eligibility for a risk reducing agent. 2. If overall lifetime risk for the development of breast cancer is 20% or higher, the patient may qualify for future screening with alternating mammogram and breast MRI. [facility], , 08/13/2024 8:51 AM. Electronically signed and approved by: Ronaldo Schmidt M.D.
== END | disposition home or self-care (01) ==
LOC: RADMAMWWP 07:29
PROVIDERS: ATTEND Internal Medicine
DX: Z12.31 Encounter for screening mammogram for malignant neoplasm of breast (principal); Z78.0 Asymptomatic menopausal state; R92.323 Mammographic fibroglandular density, bilateral breasts
CPT/HCPCS: 77063; 77067

== ENCOUNTER 2024-12-12 07:21 | Emergency (ER) | payer MEDICARE ==
[2024-12-12 07:26] VITALS: TEMP 97.4
--- NOTE | 2024-12-12 08:01 | ED ---
General Adult HPI - General Chief complaint: Chest Pain Stated complaint: chest pain Time Seen by Provider: 12/12/24 07:27 Source: patient, RN notes reviewed Mode of arrival: ambulatory Limitations: no limitations - History of Present Illness Initial comments: 64 year old female presents to the ED for evaluation of chest pain and SOB which she has had for the past month or so. She says that the chest pain feels like a stabbing sensation and radiates to her neck. . Pt says she has an appointment with outpatient cardiology in a few days but was worried with the combination of chest pain and SOB she felt during the past day and wanted to come in for e valuation sooner. Patient states she recently saw her panel coverer gave her inhaler for her shortness of breath. Patient states currently she does not have any symptoms. - Related Data Home Medications Medication Instructions Recorded Confirmed Metoprolol Tartrate 25 mg PO DAILY 09/27/15 07/31/21 diphenhydrAMINE HCL [Benadryl] 50 mg PO HS 07/04/17 07/31/21 Ascorbic Acid [Vitamin C] 500 mg PO DAILY 07/31/21 07/31/21 Cyanocobalamin (Vitamin B-12) 1,000 mcg PO DAILY 07/31/21 07/31/21 [Vitamin B-12] Ibuprofen [Motrin Ib] 800 mg PO HS 07/31/21 07/31/21 Previous Rx's Medication Instructions Recorded ALPRAZolam [Xanax] 0.25 mg PO TID PRN #6 tab 08/05/21 Acetaminophen Tab [Tylenol] 650 mg PO Q4HR PRN #30 tab 08/05/21 Albuterol Inhaler [Ventolin Hfa 2 puff INHALATION RT-Q6H PRN gm 08/05/21 Inhaler] Albuterol Inhaler [Ventolin Hfa 2 puff INHALATION RT-TID 30 Days 08/05/21 Inhaler] #1 gm Cholecalciferol [Vitamin D3 (25 25 mcg PO DAILY 30 Days #30 tablet 08/05/21 Mcg = 1000 Iu)] Docusate [Colace] 100 mg PO BID 30 Days #60 cap 08/05/21 Fluconazole [Diflucan] 100 mg PO DAILY #5 tab 08/05/21 Zinc Sulfate [Orazinc] 220 mg PO DAILY 14 Days #14 cap 08/05/21 dexAMETHasone [Decadron] 6 mg PO DAILY 5 Days #5 tablet 08/05/21 diphenhydrAMINE [Benadryl] 50 mg PO HS PRN cap 08/05/21 guaiFENesin [Mucinex] 1,200 mg PO Q12HR #20 tablet 08/05/21 Ketorolac [Toradol] 10 mg PO Q6HR #20 tab 09/06/22 Tamsulosin [Flomax] 0.4 mg PO DAILY #7 cap 09/06/22 Allergies Allergy/AdvReac Type Severity Reaction Status Date / Time Penicillins AdvReac Rash/Hives Verified 07/31/21 08:40 Review of Systems ROS Statement: Those systems with pertinent positive or pertinent negative responses have been documented in the HPI. ROS Other: All systems not noted in ROS Statement are negative. Past Medical History Past Medical History: Asthma, GERD/Reflux, Hypertension, Osteoarthritis (OA), Pneumonia Additional Past Medical History / Comment(s): Hx kidney stones. Hx dislocated left elbow, still has limited mobility in left arm. Cervical CA 40 years ago, UTI abx started 07/22 not finished History of Any Multi-Drug Resistant Organisms: None Reported Past Surgical History: Adenoidectomy, Cholecystectomy, Hysterectomy, Tonsillectomy Additional Past Surgical History / Comment(s): Kidney stone surgery. sacrocolpolexy, bladder suspension 03/26/21 Past Anesthesia/Blood Transfusion Reactions: No Reported Reaction, Postoperative Nausea & Vomiting (PONV) Additional Past Anesthesia/Blood Transfusion Reaction / Comment(s): Daughter PONV. Past Psychological History: No Psychological Hx Reported Smoking Status: Never smoker Past Alcohol Use History: None Reported Past Drug Use History: None Reported - Past Family History Mother Family Medical History: Coronary Artery Disease (CAD) Additional Family Medical History / Comment(s): OPEN HEART SURGERY. Father Family Medical History: Cancer Additional Family Medical History / Comment(s): LUNG CANCER. Sister(s) Family Medical History: Deep Vein Thrombosis (DVT) General Exam Limitations: no limitations General appearance: alert, in no apparent distress Head exam: Present: atraumatic, normocephalic, normal inspection Eye exam: Present: normal appearance, PERRL, EOMI. Absent: scleral icterus, conjunctival injection, periorbital swelling ENT exam: Present: normal exam, mucous membranes moist Neck exam: Present: normal inspection. Absent: tenderness, meningismus, lymphadenopathy Respiratory exam: Present: normal lung sounds bilaterally, chest wall tenderness. Absent: respiratory distress, wheezes, rales, rhonchi, stridor Cardiovascular Exam: Present: regular rate, normal rhythm, normal heart sounds. Absent: systolic murmur, diastolic murmur, rubs, gallop, clicks GI/Abdominal exam: Present: soft, normal bowel sounds. Absent: distended, te nderness, guarding, rebound, rigid Course Vital Signs 12/12/24 12/12/24 12/12/24 07:23 10:05 10:55 Temperature 97.4 F L Pulse Rate 88 70 70 Respiratory 16 18 18 Rate Blood Pressure 159/87 136/90 136/90 O2 Sat by Pulse 98 100 100 Oximetry EKG Findings - EKG Comments: EKG Findings:: EKG performed at 7: 31 sinus rhythm rate of 80 RI 158 QRS 77 QT/QTc 356/392 inverted T wave in lead III noted - EKG Results: EKG: interpreted by LYNNE Medical Decision Making - Medical Decision Making Was pt. sent in by a medical professional or institution (, PA, AN/SSN 2 4 OPERATOR, urgent care, hospital, or group home...) When possible be specific @ -[No] Did you speak to anyone other than the patient for history (EMS, parent, family, police, friend...)? What history was obtained from this source @ -[No] Did you review nursing and triage notes (agree or disagree)? Why? @ -[I reviewed and agree with nursing and triage notes] Were old charts reviewed (outside hosp., previous admission, EMS record, old EKG, old radiological studies, urgent care reports/EKG's, group home records)? Report findings @ -[No old charts were reviewed] Differential Diagnosis (chest pain, altered mental status, abdominal pain women, abdominal pain men, vaginal bleeding, weakness, fever, dyspnea, syncope, he adache, dizziness, GI bleed, back pain, seizure, CVA, palpatations, mental health, musculoskeletal)? @ -[Differential Chest Pain: Stable Angina, Unstable Angina, STEMI, NSTEMI Aortic Dissection, Pneumothorax, Musculoskeletal, Esophageal Spasm GERD, Cholecystitis, Pancreatitis, Zoster, this is not meant to be an all-inclusive list. EKG interpreted by me (3pts min.). @ -[As above] X-rays interpreted by me (1pt min.). @ -Chest x-ray shows mild COPD changes no acute process CT interpreted by me (1pt min.). @ -[None done] U/S interpreted by me (1pt. min.). @ -[None done] What testing was considered but not performed or refused? (CT, X-rays, U/S, labs)? Why? @ -[None] What meds were considered but not given or refused? Why? @ -[None] Did you discuss the management of the patient with other professionals (professionals i.e. , PA, AN/SSN 2 4 OPERATOR, lab, RT, psych nurse, social worker assistant, commercial artist lettering, teacher, founder chairman and chief creative officer, nurse case management)? Give summary @ -[No] Was smoking cessation discussed for >3mins.? @ -[No] Was critical care preformed (if so, how long)? @ -[No] Were there social determinants of health that impacted care today? How? (Homelessness, low income, unemployed, alcoholism, drug addiction, tr ansportation, low edu. Level, literacy, decrease access to med. care, fpc, rehab)? @ -[No] Was there de-escalation of care discussed even if they declined (Discuss DNR or withdrawal of care, Hospice)? DNR status @ -[No] What co-morbidities impacted this encounter? (DM, HTN, Smoking, COPD, CAD, Canc er, CVA, ARF, Chemo, Hep., AIDS, mental health diagnosis, sleep apnea, morbid obesity)? @ -[None] Was patient admitted / discharged? Hospital course, mention meds given and route, prescriptions, significant lab abnormalities, going to OR and other pertinent info. @ -Charge patient presented for ongoing chest pain, chest wall pain she does have reproducible chest wall pain she is recently seen pulmonary had cardiology evaluation and repeat evaluation coming up she was offered admission patient d eclined she states she feels comfortable discharge as she has close follow-up and currently asymptomatic. Undiagnosed new problem with uncertain prognosis? @ -[No] Drug Therapy requiring intensive monitoring for toxicity (Heparin, Nitro, Insulin, Cardizem)? @ -[No] Were any procedures done? @ -[No] Diagnosis/symptom? @ -Atypical chest pain, chest wall pain palpitations Acute, or Chronic, or Acute on Chronic? @ -Acute Uncomplicated (without systemic symptoms) or Complicated (systemic symptoms)? @ -,complicated Side effects of treatment? @ -[No] Exacerbation, Progression, or Severe Exacerbation? @ -[No] Poses a threat to life or bodily function? How? (Chest pain, [place], [place], pneumonia, PE, COPD, DKA, ARF, appy, cholecystitis, CVA, Diverticulitis, Homicidal, Suicidal, threat to staff... and all critical care pts) @ -Yes possible ACS risk to cardiac function - Lab Data Result diagrams: 12/12/24 08:35 12/12/24 08:35 Lab Results 12/12/24 12/12/24 12/12/24 Range/Units 08:35 08:35 08:35 WBC 6.75 (4.50-10.00) 10*3/uL RBC 5.06 (4.10-5.20) 10*6/uL Hgb 14.8 (12.0-15.0) g/dL Hct 43.1 (37.2-46.3) % MCV 85.2 (80.0-97.0) fL MCH 29.2 (27.0-32.0) pg MCHC 34.3 (32.0-37.0) g/dL Plt Count 200 (140-440) 10*3/uL MPV 8.7 L (9.5-12.2) fL Immature Gran % (Auto) 0.3 % Neutrophils % 59.4 % Lymphocytes % 30.7 % Monocytes % 6.5 % Eosinophils % 2.2 % Basophils % 0.9 % Immature Gran # 0.02 (0.00-0.04) 10*3/uL Neutrophils # 4.01 (1.80-7.70) 10*3/uL Lymphocytes # 2.07 (0.90-5.00) 10*3/uL Monocytes # 0.44 (0.20-1.00) 10*3/uL Eosinophils # 0.15 (0.04-0.35) 10*3/uL Basophils # 0.06 (0.00-0.10) 10*3/uL PT 10.2 (10.0-12.5) sec INR 0.9 (<1.2) APTT 22.2 (22.0-30.0) sec D-Dimer 0.40 (<0.60) mg/L FEU Sodium 140 (137-145) mmol/L Potassium 4.2 (3.5-5.1) mmol/L Chloride 106 (98-107) mmol/L Carbon Dioxide 23 (22-30) mmol/L Anion Gap 11 mmol/L BUN 16 (7-17) mg/dL Creatinine 0.67 (0.52-1.04) mg/dL Est GFR (CKD-EPI)AfAm >90 (>60 ml/min/1.73 sqM) Est GFR (CKD-EPI)NonAf >90 (>60 ml/min/1.73 sqM) Glucose 97 (74-99) mg/dL Calcium 10.1 (8.4-10.2) mg/dL Magnesium 1.7 (1.6-2.3) mg/dL Total Bilirubin 1.7 H (0.2-1.3) mg/dL AST 23 (14-36) U/L ALT 28 (4-34) U/L Alkaline Phosphatase 104 (38-126) U/L Troponin I (0.000-0.034) ng/mL Total Protein 7.3 (6.3-8.2) g/dL Albumin 4.5 (3.5-5.0) g/dL 12/12/24 Range/Units 08:35 WBC (4.50-10.00) 10*3/uL RBC (4.10-5.20) 10*6/uL Hgb (12.0-15.0) g/dL Hct (37.2-46.3) % MCV (80.0-97.0) fL MCH (27.0-32.0) pg MCHC (32.0-37.0) g/dL Plt Count (140-440) 10*3/uL MPV (9.5-12.2) fL Immature Gran % (Auto) % Neutrophils % % Lymphocytes % % Monocytes % % Eosinophils % % Basophils % % Immature Gran # (0.00-0.04) 10*3/uL Neutrophils # (1.80-7.70) 10*3/uL Lymphocytes # (0.90-5.00) 10*3/uL Monocytes # (0.20-1.00) 10*3/uL Eosinophils # (0.04-0.35) 10*3/uL Basophils # (0.00-0.10) 10*3/uL PT (10.0-12.5) sec INR (<1.2) APTT (22.0-30.0) sec D-Dimer (<0.60) mg/L FEU Sodium (137-145) mmol/L Potassium (3.5-5.1) mmol/L Chloride (98-107) mmol/L Carbon Dioxide (22-30) mmol/L Anion Gap mmol/L BUN (7-17) mg/dL Creatinine (0.52-1.04) mg/dL Est GFR (CKD-EPI)AfAm (>60 ml/min/1.73 sqM) Est GFR (CKD-EPI)NonAf (>60 ml/min/1.73 sqM) Glucose (74-99) mg/dL Calcium (8.4-10.2) mg/dL Magnesium (1.6-2.3) mg/dL Total Bilirubin (0.2-1.3) mg/dL AST (14-36) U/L ALT (4-34) U/L Alkaline Phosphatase (38-126) U/L Troponin I <0.012 (0.000-0.034) ng/mL Total Protein (6.3-8.2) g/dL Albumin (3.5-5.0) g/dL Disposition Clinical Impression: Palpitations, Atypical chest pain Disposition: HOME SELF-CARE Condition: Stable Instructions (If sedation given, give patient instructions): Chest Pain (ED) Additional Instructions: Please return to the Emergency Department if symptoms worsen or any other concerns. Is patient prescribed a controlled substance at d/c from ED?: No Referrals: Ninoska Crawley MD [Primary Care Provider] - 1-2 days Time of Disposition: 10:33
[2024-12-12] MEDS: ASPIRIN 81 MG PO STA (08:21)
[2024-12-12 08:50] LABS: Basophils # (A) 0.06 10*3/uL (0.00-0.10); Basophils % (A) 0.9 %; Eosinophils # (A) 0.15 10*3/uL (0.04-0.35); Eosinophils % (A) 2.2 %; HCT 43.1 % (37.2-46.3); HGB 14.8 g/dL (12.0-15.0); Lymphocytes # (A) 2.07 10*3/uL (0.90-5.00); Lymphocytes % (A) 30.7 %; MCH 29.2 pg (27.0-32.0); MCHC 34.3 g/dL (32.0-37.0); MCV 85.2 fL (80.0-97.0); Mean Platelet Volume 8.7 fL (9.5-12.2); Monocytes # (A) 0.44 10*3/uL (0.20-1.00); Monocytes % (A) 6.5 %; Neutrophils # (A) 4.01 10*3/uL (1.80-7.70); Neutrophils % (A) 59.4 %; Platelet Count 200 10*3/uL (140-440); RBC 5.06 10*6/uL (4.10-5.20); RDW 13.2 % (11.5-14.5); WBC 6.75 10*3/uL (4.50-10.00)
[2024-12-12 09:04] LABS: ALT 28 U/L (4-34); AST 23 U/L (14-36); African American GFR (CKD) >90 (>60 ml/min/1.73 sqM); Albumin 4.5 g/dL (3.5-5.0); Alkaline Phosphatase 104 U/L (38-126); Anion Gap 11 mmol/L; Blood Urea Nitrogen 16 mg/dL (7-17); Calcium 10.1 mg/dL (8.4-10.2); Carbon Dioxide 23 mmol/L (22-30); Chloride 106 mmol/L (98-107); Glucose 97 mg/dL (74-99); Magnesium 1.7 mg/dL (1.6-2.3); Non-African American GFR(CKD) >90 (>60 ml/min/1.73 sqM); Potassium 4.2 mmol/L (3.5-5.1); Sodium 140 mmol/L (137-145); Total Bilirubin 1.7 mg/dL (0.2-1.3); Total Protein 7.3 g/dL (6.3-8.2)
[2024-12-12 09:05] LABS: INR 0.9 (<1.2); Partial Thromboplastin Time 22.2 sec (22.0-30.0); Prothrombin Time 10.2 sec (10.0-12.5)
--- NOTE | 2024-12-12 09:38 | XR ---
EXAMINATION TYPE: XR chest 2V DATE OF EXAM: 12/12/2024 9:34 AM COMPARISON: 12/05/2024 CLINICAL INDICATION: Female, 64 years old with history of Chest Pain, , TECHNIQUE: PA and lateral views FINDINGS: Heart upper limits of normal in size. Mild interstitial density appears increased. No consolidation o r pleural effusion. IMPRESSION: Interstitial density appears increased and could reflect bronchitis, asthma, or mild pulmonary vascul ar congestion. Clinically correlate. [facility], Workstation: [email or web address], 12/12/2024 9:36 AM
[2024-12-12 10:07] VITALS: BP 136/90; PULSE 70; RESP 18
== END 2024-12-12 11:10 | disposition home or self-care (01) ==
LOC: EC 07:21
DX: R07.89 Other chest pain (principal); R00.2 Palpitations; Z88.0 Allergy status to penicillin
CPT/HCPCS: 36415; 71046; 80053; 83735; 84484; 85025; 85379; 85610; 85730; 93005; 99285